=== PATIENT | male | born 1950 | race Caucasian/White ===

== ENCOUNTER 2016-07-10 12:15 | Inpatient (IN) | payer OTHER, MEDICAID, MEDICARE ==
[~2016-07-10 12:15] MED LIST: ALFU10TA2 PO; BENZ1TAB PO; BUSP15TA PO; CORE12.5 PO; COZA50TA PO; CRES20TA PO; CYMB60CA PO; DEPA500T PO; DICL50TA8 PO; DOCU50SY2 PO; FENO160T2 PO; FLON0.053; FURO1TAB93 PO; GLUCTAB PO; HYDR10SO PO; INSU100V3 SC; LATU80TA PO; LYRI150C PO; METF-324 PO; NITR0.4S SL; NOVORP2 SQ; NRSS SQ; POTA20PA PO; RISP2TAB2 PO
[2016-07-10 12:36] VITALS: BP 148/69; PULSE 81; RESP 20; TEMP 100.1; O2SAT 97
[2016-07-10 14:01] LABS: AUTOMATED NEUTROPHIL # 3.2 TH/MM3 (1.8-7.7); BASOPHIL % 0.3 % (0.0-2.0); EOSINOPHIL # 0.1 TH/MM3 (0-0.4); EOSINOPHIL % 1.4 % (0.0-4.0); HEMATOCRIT 36.7 % (39.0-51.0); HEMO FLAGS DIFF FINAL; LYMPH % 33.4 % (9.0-44.0); LYMPHOCYTE # 1.9 TH/MM3 (1.0-4.8); MEAN CELL VOLUME 80.9 FL (80.0-100.0); MEAN CORPUSCULAR HEMOGLOBIN 27.7 PG (27.0-34.0); MEAN CORPUSCULAR HGB CONC 34.3 % (32.0-36.0); MONO % 10.2 % (0.0-8.0); NEUT % 54.7 % (16.0-70.0); PLATELET COUNT 163 TH/MM3 (150-450); RED BLOOD COUNT 4.54 MIL/MM3 (4.50-5.90); RED CELL DISTRIBUTION WIDTH 14.3 % (11.6-17.2); WHITE BLOOD COUNT 5.8 TH/MM3 (4.0-11.0)
[2016-07-10 14:15] LABS: BLOOD, URINE NEG (NEG); GLUCOSE,URINE 1000 mg/dL (NEG); KETONE, URINE 10 mg/dL (NEG); NITRITE,URINE NEG (NEG); PH, URINE 5.5 (5.0-8.5); URINE COLOR LIGHT-YELLOW (YELLW/STRAW)
[2016-07-10 14:16] LABS: ANION GAP 11 MEQ/L (5-15); BICARBONATE 27.3 MEQ/L (21.0-32.0); BLOOD UREA NITROGEN 16 MG/DL (7-18); CHLORIDE 96 MEQ/L (98-107); GLOMERULAR FILTRATION RATE 66 ML/MIN (>89); POTASSIUM 4.2 MEQ/L (3.5-5.1); SODIUM (NA) 134 MEQ/L (136-145)
[2016-07-10 14:16] LABS: COMMENT (UR) CULT NOT INDICATED; CULTURE IF INDICATED CULT NOT INDICATED
[2016-07-10 14:20] LABS: ALKALINE PHOSPHATASE 65 U/L (45-117); ALT (GPT) 27 U/L (12-78); AST (GOT) 15 U/L (15-37); TOTAL BILIRUBIN ADULT 0.3 MG/DL (0.2-1.0)
[2016-07-10] MEDS ORDERED: IBUPROFEN 800 MG TAB PO ONE (14:45)
--- NOTE | 2016-07-10 15:12 | RADRPT ---
EXAM DATE/TIME: 07/10/2016 15:04 [place] COMPARISON: No previous studies available for comparison. INDICATIONS : Fever. No chest complaints. MEDICAL HISTORY : None. SURGICAL HISTORY : Gallbladder removed 2 years ago. ENCOUNTER: Initial ACUITY: 1 day PAIN SCORE: 0/10 LOCATION: Bilateral chest FINDINGS: PA and lateral views of the chest demonstrate the lungs to be symmetrically aerated without evidence of mass, infiltrate or effusion. The cardiomediastinal contours are unremarkable. Osseous structure s are intact.CONCLUSION: Normal examination for a patient of this age. Ochoa Mehta MD on July 10, 2016 at 15:10 Board Certified Radiologist. This report was verified electronically.
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
[2016-07-10] MEDS ORDERED: INSULIN HUMAN REGULAR 1,000 UNITS/10 ML VIAL SQ ONE (15:45)
[2016-07-10 17:00] VITALS: BP 134/72; PULSE 78; RESP 18; TEMP 98.6; O2SAT 96
[2016-07-10 18:52] VITALS: BP 135/77; PULSE 78; RESP 18; TEMP 97.6; O2SAT 95
[2016-07-10 22:00] VITALS: BP 135/72; PULSE 75; RESP 18; O2SAT 98
[2016-07-10] MEDS ORDERED: ALUMINUM/MAGNESIUM/SIMETH 30 ML CUP PO PRN (22:00)
[2016-07-10] MEDS ORDERED: BENZTROPINE MESYLATE 2 MG/2 ML VIAL IM PRN (22:00)
[2016-07-10] MEDS ORDERED: MAGNESIUM HYDROXIDE SUSP 30 ML CUP PO PRN (22:00)
[2016-07-10] MEDS ORDERED: DEXTROSE 50% IN WATER 50 ML VIAL(D50) IV PUSH PRN (22:00)
[2016-07-10] MEDS ORDERED: NITROGLYCERIN 0.4 MG SL 25 TABS/BTL SL PRN (22:00)
[2016-07-10] MEDS ORDERED: BENZTROPINE MESYLATE 1 MG TAB PO PRN (22:00)
[2016-07-10] MEDS ORDERED: GLUCAGON 1 MG/ML VIAL OTHER PRN (22:00)
[2016-07-10] MEDS ORDERED: LORazepam 2 MG/ML VIAL IM PRN (22:00)
[2016-07-10] MEDS ORDERED: LORazepam 1 MG TAB PO PRN (22:00)
[2016-07-10 23:00] LABS: AMPHETAMINE, URINE NEG (NEG); BARBITURATES, URINE NEG (NEG); COCAINE, URINE NEG (NEG)
[2016-07-10 23:30] VITALS: BP 131/63; PULSE 76; RESP 18; TEMP 98.3; O2SAT 94
[2016-07-11] MEDS: diphenhydrAMINE HCL 50 MG CAP PO PRN ×2 (01:22→20:55)
[2016-07-11] MEDS: ACETAMINOPHEN/HYDROcodone 325 MG/10 MG TAB PO PRN ×3 (03:23→20:50)
[2016-07-11 05:38] VITALS: BP 118/59; PULSE 72; RESP 19; TEMP 97.1; O2SAT 18
[2016-07-11] MEDS: INSULIN ASPART SUPPLEMENTAL SCALE SQ SCH ×4 (06:27→20:51)
[2016-07-11 08:03] VITALS: O2SAT 98
[2016-07-11 08:33] LABS: AUTOMATED NEUTROPHIL # 2.4 TH/MM3 (1.8-7.7); BASOPHIL % 0.3 % (0.0-2.0); EOSINOPHIL # 0.1 TH/MM3 (0-0.4); HEMATOCRIT 37.3 % (39.0-51.0); HEMO FLAGS DIFF FINAL; LYMPH % 48.1 % (9.0-44.0); LYMPHOCYTE # 2.9 TH/MM3 (1.0-4.8); MEAN CELL VOLUME 82.1 FL (80.0-100.0); MEAN CORPUSCULAR HEMOGLOBIN 27.6 PG (27.0-34.0); MEAN CORPUSCULAR HGB CONC 33.6 % (32.0-36.0); MONO % 10.4 % (0.0-8.0); NEUT % 39.2 % (16.0-70.0); PLATELET COUNT 156 TH/MM3 (150-450); RED BLOOD COUNT 4.55 MIL/MM3 (4.50-5.90); RED CELL DISTRIBUTION WIDTH 14.2 % (11.6-17.2)
[2016-07-11] MEDS: INSULIN HUMAN REGULAR 1,000 UNITS/10 ML VIAL SQ SCH ×3 (08:38→17:03)
[2016-07-11] MEDS: NICOTINE 21 MG/24 HR PATCH T-DERMAL SCH (09:00)
[2016-07-11] MEDS: REMOVE OLD PATCH T-DERMAL SCH (09:00)
[2016-07-11] MEDS: CARVEDILOL 12.5 MG TAB PO SCH ×2 (09:00→20:50)
[2016-07-11] MEDS ORDERED: METFORMIN 500 MG PO SCH (09:00)
[2016-07-11] MEDS: POTASSIUM CHLORIDE 20 MEQ PWD PACKET PO SCH (09:00)
[2016-07-11 09:22] LABS: ALKALINE PHOSPHATASE 52 U/L (45-117); ALT (GPT) 26 U/L (12-78); ANION GAP 6 MEQ/L (5-15); AST (GOT) 12 U/L (15-37); BICARBONATE 33.5 MEQ/L (21.0-32.0); BLOOD UREA NITROGEN 14 MG/DL (7-18); CHLORIDE 103 MEQ/L (98-107); GLOMERULAR FILTRATION RATE 95 ML/MIN (>89); HDL CHOLESTEROL 35.3 MG/DL (40.0-60.0); LDL CHOLESTEROL 31 MG/DL (0-99); POTASSIUM 3.9 MEQ/L (3.5-5.1); SODIUM (NA) 142 MEQ/L (136-145); TOTAL BILIRUBIN ADULT 0.2 MG/DL (0.2-1.0)
[2016-07-11] MEDS: FLUTICASONE PROPIONATE 50 MCG/ACT 16 GM NASAL SPRAY SCH (09:53)
[2016-07-11] MEDS: FUROSEMIDE 40 MG TAB PO SCH ×2 (09:54→20:49)
[2016-07-11] MEDS: DOCUSATE SODIUM 100 MG CAP PO SCH (09:54)
[2016-07-11] MEDS: busPIRone HCL 5 MG TAB PO SCH (09:54)
[2016-07-11] MEDS: DIVALPROEX DR 500 MG TABEC PO SCH ×2 (09:54→20:49)
[2016-07-11] MEDS: DICLOFENAC SODIUM 75 MG DELAYED RELEASE TAB PO SCH ×2 (09:54→20:49)
[2016-07-11] MEDS: ATORVASTATIN 40 MG TAB PO SCH (09:54)
[2016-07-11] MEDS: BENZTROPINE MESYLATE 1 MG TAB PO SCH ×3 (09:54→18:00)
[2016-07-11] MEDS: DULoxetine HCl DR 60 MG CAP PO SCH ×2 (09:54→20:49)
[2016-07-11] MEDS: TAMSULOSIN HCL 0.4 MG CAP PO SCH (09:54)
[2016-07-11] MEDS: risperiDONE 1 MG TAB PO SCH (09:54)
[2016-07-11] MEDS: FENOFIBRATE 145 MG TAB PO SCH (09:54)
[2016-07-11] MEDS: PREGABALIN 75 MG CAP PO SCH ×3 (10:55→18:26)
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
--- NOTE | 2016-07-11 12:05 | PD.CONS ---
[facility] Request[facility] By Psychiatry team Reason for Consult Medical management Primary Care Physician No Primary Care Physician Diagnoses: History of Present Illness Patient is a 65-year-old male with primary medical history of diabetes, high cholesterol, hypertension, neuropathy, sleep apnea who came into the hospital under [place] act. Patient allegedly aggressive towards family members. Also reports visual auditory hallucinations. He is now admitted to inpatient medical psych unit for further evaluation. Consulted for medical management. Patient seen today. States he is doing well. 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 States they already did the x-ray of the left second toe and found without any fractures but unable to describe any treatment plan. States he is scheduled follow-up with a doctor. Otherwise, denies pain and discomfort. Denies SOB/ dyspnea. Denies chest pain, palpitations, headaches, dizziness. Denies fevers, chills, n/v/d. Review of Systems Other Negative except for what is noted on history of present illness. Past Family Social History Allergies: Coded Allergies: No Known Allergies (Unverified , 07/10/16) Past Medical History Diabetes Chronic back pain Hypertension Uropathy High cholesterol Sleep apnea on CPAP machine at home Past Surgical History Abdominal surgery Tonsillectomy Reported Medications Docusate Sodium 50 Mg/5 Ml Liq 100 Mg PO DAILY Humulin N (Insulin Human NPH) Inj 60 Unit SC BID@0700,1700 Novolin Regular Insulin Supplemental Scale (Insulin Human Regular) U 100 Inj 1 Unit SQ DIRECTED Hydrocodone/Acetaminophen 10 mg/325 mg 1 Tab 1 Tab PO Q6H PRN Coreg (Carvedilol) 12.5 Mg Tab 25 Mg PO BID Klor-Con (Potassium Chloride) 20 Meq Pow 20 Meq PO DAILY *DISSOLVE POWDER IN 4 OUNCES OF WATER* Novolin R (Insulin Human Regular) 100 Units/Ml Inj 22 Units SQ TIDAC Flonase (Fluticasone Propionate) 0.05 % Naspr 2 Spr NA DAILY 2 SPRAYS EACH NOSTRIL Cozaar (Losartan Potassium) 50 Mg Tab 50 Mg PO DAILY@1900 Crestor (Rosuvastatin Calcium) 20 Mg Tab 1 Tab PO DAILY Fenofibrate 160 Mg Tab 160 Mg PO DAILY Metformin HCl ER (Metformin HCl) 500 Mg Tab 500 Mg PO DAILY Metformin HCl ER (Metformin HCl) 1,000 Mg Tab 1,500 Mg PO HS Lasix (Furosemide) 40 Mg Tab 40 Mg PO BID Cymbalta (Duloxetine Hcl) 60 Mg Cap 60 Mg PO BID Alfuzosin Hcl Er (Alfuzosin HCl) 10 Mg Tab 10 Mg PO DAILYWMEAL Diclofenac Sodium Dr (Diclofenac Sodium) 50 Mg Tab 75 Mg PO BID Risperdal (Risperidone) 2 Mg Tab 2 Mg PO DAILY Buspirone Hcl (Buspirone HCl) 15 Mg Tab 15 Mg PO DAILY Nitrostat (Nitroglycerin) 0.4 Mg Sub 0.4 Mg SL DIRECTED Cogentin (Benztropine Mesylate) 2 Mg Tab 2 Mg PO TID Depakote Delayed-Release (Divalproex Sodium) 500 Mg Tabec 1,000 Mg PO BID Lyrica (Pregabalin) 150 Mg Cap 150 Mg PO TID Latuda (Lurasidone HCl) 80 Mg Tab 80 Mg PO HS Active Ordered Medications Current Medications Medications (Trade) Dose Ordered Sig/Ildefonso Route Start Time Stop Time Status Last Admin (Ativan) 1 mg Q6H PRN PO 07/10/16 22:00 (Ativan Inj) 1 mg Q6H PRN IM 07/10/16 22:00 (Benadryl) 50 mg HS PRN PO 07/10/16 22:00 07/11/16 01:22 (Tylenol) 650 mg Q4H PRN PO 07/10/16 22:00 (Milk Of Magnesia Liq) 30 ml DAILY PRN PO 07/10/16 22:00 (Mag-Al Plus Susp Liq) 30 ml Q6H PRN PO 07/10/16 22:00 (Habitrol 21 Mg Patch.24 Hr) 1 patch DAILY T-DERMAL 07/11/16 09:00 (Cogentin) 1 mg Q12H PRN PO 07/10/16 22:00 (Cogentin Inj) 1 mg Q12H PRN IM 07/10/16 22:00 Miscellaneous Information 1 DAILY T-DERMAL 07/11/16 09:00 (Cogentin) 2 mg TID PO 07/11/16 09:00 07/11/16 09:54 (Coreg) 25 mg BID PO 07/11/16 09:00 (Depakote Dr) 1,000 mg BID PO 07/11/16 09:00 07/11/16 09:54 (Flonase [place] Spr) 2 spray DAILY NA 07/11/16 09:00 07/11/16 09:53 (Lasix) 40 mg BID PO 07/11/16 09:00 07/11/16 09:54 (Cozaar) 50 mg DAILY@1900 PO 07/11/16 19:00 (Nitrostat Sl) 0.4 mg DAILY PRN SL 07/10/16 22:00 (KCl Powder) 20 meq DAILY PO 07/11/16 09:00 07/11/16 09:00 (risperDAL) 2 mg DAILY PO 07/11/16 09:00 07/11/16 09:54 (Flomax) 0.4 mg DAILY PO 07/11/16 09:00 07/11/16 09:54 (Buspar) 15 mg DAILY PO 07/11/16 09:00 07/11/16 09:54 (Lipitor) 40 mg DAILY PO 07/11/16 09:00 07/11/16 09:54 (Cymbalta Dr) 60 mg BID PO 07/11/16 09:00 07/11/16 09:54 (Voltaren Dr) 75 mg BID PO 07/11/16 09:00 07/11/16 09:54 (Colace) 100 mg DAILY PO 07/11/16 09:00 07/11/16 09:54 (Tricor) 145 mg DAILY PO 07/11/16 09:00 07/11/16 09:54 (Latuda) 80 mg HS PO 07/11/16 21:00 (Glucophage) 1,000 mg BID PO 07/11/16 21:00 ([place] 10-325 Mg) 1 tab Q6H PRN PO 07/10/16 22:00 07/11/16 03:23 (Lyrica) 150 mg TID PO 07/11/16 09:00 07/11/16 10:55 (NovoLIN R INJ) 22 units TIDAC SQ 07/11/16 08:00 07/11/16 12:02 (D50w (Vial) Inj) 25 ml UNSCH PRN IV PUSH 07/10/16 22:00 (Glucagon Inj) 1 mg UNSCH PRN OTHER 07/10/16 22:00 Family History Mother with diabetes hypertension Father with hypertension Social History Denies alcohol use, quit 6 years ago Denies tobacco use Denies illicit drug use Physical Exam Vital Signs Vital Signs Date Time Temp Pulse Resp B/P Pulse Ox O2 Delivery O2 Flow Rate FiO2 07/11/16 08:03 98 07/11/16 05:38 97.1 72 19 118/59 18 07/10/16 23:30 98.3 76 18 131/63 94 07/10/16 22:00 75 18 135/72 98 07/10/16 18:52 97.6 78 18 135/77 95 Room Air 07/10/16 17:00 18 20 07/10/16 17:00 98.6 78 18 134/72 96 Room Air 07/10/16 12:36 100.1 81 20 148/69 97 Physical Exam GENERAL: This is a morbidly obese patient, in no apparent distress. SKIN: No rashes, ecchymoses or lesions. Cool and dry. HEAD: Atraumatic. Normocephalic. No temporal or scalp tenderness. EYES: Pupils equal round and reactive. Extraocular motions intact. No scleral icterus. No injection or drainage. ENT: Nose without bleeding. Throat without erythema. Uvula midline. Airway patent. NECK: Trachea midline. No JVD or lymphadenopathy. Supple, nontender, no meningeal signs. CARDIOVASCULAR: Regular rate and rhythm without murmurs, gallops, or rubs. RESPIRATORY: Clear to auscultation. Breath sounds equal bilaterally. No wheezes , rales, or rhonchi. GASTROINTESTINAL: Abdomen soft, non-tender, nondistended. Bowel sounds active 4 MUSCULOSKELETAL: Extremities without clubbing, cyanosis, or edema. No joint tenderness, effusion, or edema noted. No calf tenderness. Negative Homans sign bilaterally. Left second toe edema, no erythema noted, mild tenderness, able to move without difficulty NEUROLOGICAL: Awake and alert. Oriented 3. Motor and sensory grossly within normal limits. No focal neuro deficit.. Normal speech. Laboratory Laboratory Tests Test 07/10/16 07/10/16 07/11/16 13:35 13:40 08:14 Urine Color LIGHT-YELLOW Urine Turbidity CLEAR Urine pH 5.5 Urine Specific [place] 1.024 Urine Protein NEG Urine Glucose (UA) 1000 Urine Ketones 10 Urine Occult Blood NEG Urine Nitrite NEG Urine Bilirubin NEG Urine Urobilinogen LESS THAN 2.0 Urine Leukocyte Esterase NEG Microscopic Urinalysis Comment CULT NOT INDICATED Urine Opiates Screen NEG Urine Barbiturates Screen NEG Urine Amphetamines Screen NEG Urine Benzodiazepines Screen NEG Urine Cocaine Screen NEG Urine Cannabinoids Screen NEG White Blood Count 5.8 6.0 Red Blood Count 4.54 4.55 Hemoglobin 12.6 12.6 Hematocrit 36.7 37.3 Mean Corpuscular Volume 80.9 82.1 Mean Corpuscular Hemoglobin 27.7 27.6 Mean Corpuscular Hemoglobin 34.3 33.6 Concent Red Cell Distribution Width 14.3 14.2 Platelet Count 163 156 Mean Platelet Volume 8.7 8.1 Neutrophils (%) (Auto) 54.7 39.2 Lymphocytes (%) (Auto) 33.4 48.1 Monocytes (%) (Auto) 10.2 10.4 Eosinophils (%) (Auto) 1.4 2.0 Basophils (%) (Auto) 0.3 0.3 Neutrophils # (Auto) 3.2 2.4 Lymphocytes # (Auto) 1.9 2.9 Monocytes # (Auto) 0.6 0.6 Eosinophils # (Auto) 0.1 0.1 Basophils # (Auto) 0.0 0.0 CBC Comment DIFF FINAL DIFF FINAL Differential Comment Sodium Level 134 142 Potassium Level 4.2 3.9 Chloride Level 96 103 Carbon Dioxide Level 27.3 33.5 Anion Gap 11 6 Blood Urea Nitrogen 16 14 Creatinine 1.12 0.82 Estimat Glomerular Filtration 66 95 Rate Random Glucose 356 206 Calcium Level 9.3 8.8 Total Bilirubin 0.3 0.2 Aspartate Amino Transf 15 12 (AST/SGOT) Alanine Aminotransferase 27 26 (ALT/SGPT) Alkaline Phosphatase 65 52 Total Protein 7.1 6.6 Albumin 3.4 3.2 Ethyl Alcohol Level LESS THAN 3 Ammonia 20 Triglycerides Level 308 Cholesterol Level 128 LDL Cholesterol 31 HDL Cholesterol 35.3 Cholesterol/HDL Ratio 3.62 Valproic Acid (Depakene) Level 52 Result Diagram: 07/11/1681307/11/16813 Assessment and Plan Problem List: (1) Bipolar disorder ICD Code: F31.9 Status: Acute (2) Sleep apnea ICD Code: G47.30 Status: Chronic (3) HTN (hypertension) ICD Code: I10 Status: Chronic (4) Hyperlipidemia ICD Code: E78.5 Status: Chronic (5) DM type 2 (diabetes mellitus, type 2) ICD Code: E11.9 Status: Acute Assessment and Plan Patient is a 65-year-old male with primary medical history of diabetes, high cholesterol, hypertension, neuropathy, sleep apnea who came into the hospital under [place] act. Patient allegedly aggressive towards family members. Also reports visual auditory hallucinations. He is now admitted to inpatient medical psych unit for further evaluation. Consulted for medical management. Auditory or visual hallucination - management by psychiatry HTN - continue with home medications - carvedilol, losartan, Lasix/ KCL - Monitor BP trend DM 2 - continue with home meds - metformin, prandial insulin - Monitor Accu-Cheks, insulin sliding scale, Sleep apnea - continue with CPAP use. Please arrangement respiratory therapist Neuropathy - continue Lyrica Left Second toe swelling - check x-ray. Follow-up results DVT prop early ambulation Written by Chavo White, acting as scribe for Dr. Lemus on 07/11/16 at 12: 45. The documentation accurately reflects the work performed [id number] by me on on 07/11/16 at 12:45. Code Status Full code Discussed Condition With Patient, nursing Problem Qualifiers (1) Bipolar disorder: Chavo Reed Jul 11, 2016 12:05 Lisset Lemus MD Jul 13, 2016 11:02
[2016-07-11 15:59] LABS: HEMOGLOBIN A1a 1.3 %; HEMOGLOBIN A1b 1.6 %; HEMOGLOBIN Ao 78.8 %; HEMOGLOBIN F 1.4 %; HEMOGLOBIN LA1C 2.6 %
[2016-07-11] MEDS: LOSARTAN 50 MG TAB PO SCH ×2 (18:26→20:50)
[2016-07-11 19:30] VITALS: BP 133/73; PULSE 82; RESP 16; TEMP 98.8; O2SAT 96
--- NOTE | 2016-07-11 20:43 | RADRPT ---
EXAM DATE/TIME: 07/11/2016 19:33 [facility] COMPARISON: No previous studies available for comparison. INDICATIONS : Left foot, second digit pain. MEDICAL HISTORY : None. SURGICAL HISTORY : None. ENCOUNTER: Initial ACUITY: 1 week PAIN SCORE: 10 LOCATION: distal second digit pain. FINDINGS: There is an extremely comminuted intra-articular fracture that involves the base of the second toe mi ddle phalanx. Numerous small fracture fragments are seen displaced along the medial, lateral and plan tar margins of the proximal interphalangeal joint. CONCLUSION: Severely comminuted PIP fracture of the second toe as above. Bill Morelos MD on July 11, 2016 at 20:41 Board Certified Radiologist. This report was verified electronically.
[2016-07-11] MEDS: LURASIDONE 80 MG TAB PO SCH (20:49)
[2016-07-11] MEDS: metFORMIN HCL 500 MG TAB PO SCH (20:50)
[2016-07-12 05:58] VITALS: BP 138/69; PULSE 74; RESP 16; TEMP 97.1; O2SAT 96
[2016-07-12] MEDS: INSULIN ASPART SUPPLEMENTAL SCALE SQ SCH ×4 (06:34→20:39)
[2016-07-12] MEDS: PREGABALIN 75 MG CAP PO SCH ×3 (07:49→17:37)
[2016-07-12] MEDS: FENOFIBRATE 145 MG TAB PO SCH (07:50)
[2016-07-12] MEDS: CARVEDILOL 12.5 MG TAB PO SCH ×2 (07:50→20:29)
[2016-07-12] MEDS: metFORMIN HCL 500 MG TAB PO SCH ×2 (07:50→20:30)
[2016-07-12] MEDS: risperiDONE 1 MG TAB PO SCH (07:50)
[2016-07-12] MEDS: busPIRone HCL 5 MG TAB PO SCH (07:50)
[2016-07-12] MEDS: FUROSEMIDE 40 MG TAB PO SCH ×2 (07:51→20:30)
[2016-07-12] MEDS: BENZTROPINE MESYLATE 1 MG TAB PO SCH ×3 (07:51→17:37)
[2016-07-12] MEDS: DIVALPROEX DR 500 MG TABEC PO SCH ×2 (07:51→20:30)
[2016-07-12] MEDS: DULoxetine HCl DR 60 MG CAP PO SCH ×2 (07:52→20:29)
[2016-07-12] MEDS: TAMSULOSIN HCL 0.4 MG CAP PO SCH (07:52)
[2016-07-12] MEDS: ATORVASTATIN 40 MG TAB PO SCH (07:52)
[2016-07-12] MEDS: POTASSIUM CHLORIDE 20 MEQ PWD PACKET PO SCH (07:52)
[2016-07-12] MEDS: DOCUSATE SODIUM 100 MG CAP PO SCH (07:52)
[2016-07-12] MEDS: FLUTICASONE PROPIONATE 50 MCG/ACT 16 GM NASAL SPRAY SCH (07:53)
[2016-07-12] MEDS: INSULIN HUMAN REGULAR 1,000 UNITS/10 ML VIAL SQ SCH ×3 (07:53→17:00)
[2016-07-12] MEDS: NICOTINE 21 MG/24 HR PATCH T-DERMAL SCH (08:54)
[2016-07-12] MEDS: REMOVE OLD PATCH T-DERMAL SCH (08:54)
[2016-07-12] MEDS: DICLOFENAC SODIUM 75 MG DELAYED RELEASE TAB PO SCH ×2 (08:54→20:29)
[2016-07-12] MEDS ORDERED: INSU100V3 SQ ×2 (10:59)
[2016-07-12] MEDS ORDERED: FURO1TAB60 PO (10:59)
[2016-07-12] MEDS ORDERED: HYDR-3516 PO (10:59)
--- NOTE | 2016-07-12 11:05 | HHI.PR ---
Subjective Remarks Follow-up visit left second toe swelling, DM 2, HTN. Patient seen today. States his doing well. Discussed results of left second toe x-ray. Otherwise, patient denies pain and discomfort. Denies SOB/ dyspnea. Denies chestpain, palpitations, headaches, dizziness. Denies fevers, chills, n/v/d. Objective Vitals Vital Signs Date Time Temp Pulse Resp B/P Pulse Ox O2 Delivery O2 Flow Rate FiO2 07/12/16 05:58 97.1 74 16 138/69 96 07/11/16 19:30 98.8 82 16 133/73 96 I/O 07/11/16 07/11/16 07/11/16 07/12/16 07/12/16 07/12/16 07:00 15:00 23:00 07:00 15:00 23:00 Intake Total 360 ml 960 ml 480 ml Output Total 0 ml Balance 360 ml 960 ml 0 ml 480 ml Intake Oral 360 ml 960 ml 480 ml Output Stool Total 0 ml Emesis 0 ml # Voids 2 3 2 # Bowel Movements 0 Result Diagram: 07/11/16 0814 07/11/16 0814 Imaging Last Impressions Toe X-Ray 07/11/16 0000 Signed Impressions: Service Date/Time: June 19:33 - CONCLUSION: Severely comminuted PIP fracture of the second toe as above. Bill Morelos MD Chest X-Ray 07/10/16 0000 Signed Impressions: Service Date/Time: Sunday, July 10, 2016 15:04 - CONCLUSION: Normal examination for a patient of this age. Ochoa Mehta MD Objective Remarks GENERAL: This is a morbidly obese patient, in no apparent distress. SKIN: No rashes, ecchymoses or lesions. Cool and dry. HEAD: Atraumatic. Normocephalic. No temporal or scalp tenderness. EYES: Pupils equal round and reactive. Extraocular motions intact. No scleral icterus. No injection or drainage. ENT: Nose without bleeding. Throat without erythema. Uvula midline. Airway patent. NECK: Trachea midline. No JVD or lymphadenopathy. Supple, nontender, no meningeal signs. CARDIOVASCULAR: Regular rate and rhythm without murmurs, gallops, or rubs. RESPIRATORY: Clear to auscultation. Breath sounds equal bilaterally. No wheezes , rales, or rhonchi. GASTROINTESTINAL: Abdomen soft, non-tender, nondistended. Bowel sounds active 4 MUSCULOSKELETAL: Extremities without clubbing, cyanosis, or edema. No joint tenderness, effusion, or edema noted. No calf tenderness. Negative Homans sign bilaterally. Left second toe edema, no erythema noted, mild tenderness, able to move without difficulty NEUROLOGICAL: Awake and alert. Oriented 3. Motor and sensory grossly within normal limits. No focal neuro deficit.. Normal speech. A/P Problem List: (1) Bipolar disorder ICD Code: F31.9 Status: Acute (2) Sleep apnea ICD Code: G47.30 Status: Chronic (3) HTN (hypertension) ICD Code: I10 Status: Chronic (4) Hyperlipidemia ICD Code: E78.5 Status: Chronic (5) DM type 2 (diabetes mellitus, type 2) ICD Code: E11.9 Status: Acute Assessment and Plan Patient is a 65-year-old male with primary medical history of diabetes, high cholesterol, hypertension, neuropathy, sleep apnea who came into the hospital under [place] act. Patient allegedly aggressive towards family members. Also reports visual auditory hallucinations. He is now admitted to inpatient medical psych unit for further evaluation. Consulted for medical management. Auditory or visual hallucination - management by psychiatry HTN - continue with home medications - carvedilol, losartan, Lasix/ KCL - Monitor BP trend DM 2 - continue with home meds - metformin, prandial insulin - Monitor Accu-Cheks, insulin sliding scale, Sleep apnea - continue with CPAP use. Please arrangement respiratory therapist Neuropathy - continue Lyrica Left Second toe swelling - check x-ray - showed severely comminuted PIP fracture of the second toe. - Orthopedic consulted. DVT prop early ambulation Discuss with patient, RN Written by Chavo White, acting as scribe for Dr. Lemus on 07/12/16 at 10: 14. The documentation accurately reflects the work performed [id number] by me on 07/12/16 at 10:14. Problem Qualifiers (1) Bipolar disorder: Chavo Reed Jul 12, 2016 11:05 Lisset Lemus MD Jul 12, 2016 17:04
[2016-07-12] MEDS ORDERED: ALFU10TA2 PO (11:13)
[2016-07-12] MEDS ORDERED: CARV25TA PO (11:14)
[2016-07-12] MEDS ORDERED: METF-382 PO (11:14)
[2016-07-12] MEDS ORDERED: NITR0.4S SL (11:14)
[2016-07-12] MEDS ORDERED: LURA80 PO (11:14)
[2016-07-12] MEDS ORDERED: COZA50TA PO (11:14)
[2016-07-12] MEDS ORDERED: ROSU20 PO (11:14)
[2016-07-12] MEDS ORDERED: DEPA500T3 PO (11:14)
[2016-07-12] MEDS ORDERED: DOCU100C PO (11:14)
[2016-07-12] MEDS ORDERED: FLUT50SP EACH NARE (11:14)
[2016-07-12] MEDS ORDERED: NOVORP2 SQ (11:14)
[2016-07-12] MEDS ORDERED: POTA10PO PO (11:14)
[2016-07-12] MEDS ORDERED: BENZ2TAB PO (11:14)
[2016-07-12] MEDS ORDERED: CYMB60CA PO (11:14)
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
[2016-07-12] MEDS: LOSARTAN 50 MG TAB PO SCH (17:38)
[2016-07-12 19:07] VITALS: BP 124/58; PULSE 79; RESP 20; TEMP 98; O2SAT 94
[2016-07-12] MEDS: diphenhydrAMINE HCL 50 MG CAP PO PRN (20:29)
[2016-07-12] MEDS: LURASIDONE 80 MG TAB PO SCH (20:29)
[2016-07-13 00:58] VITALS: BP 115/70; PULSE 68; RESP 15; TEMP 98.8; O2SAT 92
[2016-07-13 05:45] VITALS: BP 112/68; PULSE 69; RESP 16; TEMP 98.8; O2SAT 96
[2016-07-13] MEDS: INSULIN ASPART SUPPLEMENTAL SCALE SQ SCH ×4 (06:08→21:02)
[2016-07-13 08:00] VITALS: BP 120/80; PULSE 74; RESP 18; TEMP 97.7
[2016-07-13] MEDS: FLUTICASONE PROPIONATE 50 MCG/ACT 16 GM NASAL SPRAY SCH ×2 (08:32→08:45)
[2016-07-13] MEDS: busPIRone HCL 5 MG TAB PO SCH ×2 (08:32→08:45)
[2016-07-13] MEDS: FENOFIBRATE 145 MG TAB PO SCH ×2 (08:33→08:45)
[2016-07-13] MEDS: DULoxetine HCl DR 60 MG CAP PO SCH ×2 (08:33→08:45)
[2016-07-13] MEDS: DIVALPROEX DR 500 MG TABEC PO SCH ×2 (08:33→08:45)
[2016-07-13] MEDS: DICLOFENAC SODIUM 75 MG DELAYED RELEASE TAB PO SCH ×2 (08:33→08:45)
[2016-07-13] MEDS: FUROSEMIDE 40 MG TAB PO SCH ×2 (08:33→08:45)
[2016-07-13] MEDS: BENZTROPINE MESYLATE 1 MG TAB PO SCH ×3 (08:34→17:09)
[2016-07-13] MEDS: TAMSULOSIN HCL 0.4 MG CAP PO SCH ×2 (08:34→08:45)
[2016-07-13] MEDS: CARVEDILOL 12.5 MG TAB PO SCH ×2 (08:34→08:45)
[2016-07-13] MEDS: DOCUSATE SODIUM 100 MG CAP PO SCH ×2 (08:35→08:45)
[2016-07-13] MEDS: ATORVASTATIN 40 MG TAB PO SCH ×2 (08:35→08:45)
[2016-07-13] MEDS: metFORMIN HCL 500 MG TAB PO SCH ×2 (08:35→08:45)
[2016-07-13] MEDS: LOSARTAN 50 MG TAB PO SCH (08:45)
[2016-07-13] MEDS: LURASIDONE 80 MG TAB PO SCH (08:45)
[2016-07-13] MEDS: POTASSIUM CHLORIDE 20 MEQ PWD PACKET PO SCH (08:45)
[2016-07-13] MEDS: INSULIN HUMAN REGULAR 1,000 UNITS/10 ML VIAL SQ SCH ×3 (08:45→17:09)
[2016-07-13] MEDS: PREGABALIN 75 MG CAP PO SCH ×3 (08:45→17:09)
[2016-07-13] MEDS: NICOTINE 21 MG/24 HR PATCH T-DERMAL SCH (09:00)
[2016-07-13] MEDS: REMOVE OLD PATCH T-DERMAL SCH (09:00)
--- NOTE | 2016-07-13 10:31 | HHI.PR ---
Subjective Remarks Follow-up visit left second toe fracture, DM 2, HTN. Patient seen today. States his doing well. Has been seen by podiatry and was given shoe. States is not in any pain.Denies SOB/ dyspnea. Denies chest pain, palpitations, headaches, dizziness. Denies fevers, chills, n/v/d. Objective Vitals Vital Signs Date Time Temp Pulse Resp B/P Pulse Ox O2 Delivery O2 Flow Rate FiO2 07/13/16 08:00 97.7 74 18 120/80 07/13/16 05:45 98.8 69 16 112/68 96 07/13/16 00:58 98.8 68 15 115/70 92 07/12/16 19:07 98.0 79 20 124/58 94 I/O 07/12/16 07/12/16 07/12/16 07/13/16 07/13/16 07/13/16 07:00 15:00 23:00 07:00 15:00 23:00 Intake Total 720 ml 480 ml 240 ml 240 ml Output Total 0 ml Balance 0 ml 720 ml 480 ml 240 ml 240 ml Intake Oral 720 ml 480 ml 240 ml 240 ml Output Stool Total 0 ml Emesis 0 ml # Voids 2 2 1 # Bowel Movements 0 0 Result Diagram: 07/11/16 0814 07/11/16 0814 Imaging Last Impressions Toe X-Ray 07/11/16 0000 Signed Impressions: Service Date/Time: June 19:33 - CONCLUSION: Severely comminuted PIP fracture of the second toe as above. Bill Morelos MD Chest X-Ray 07/10/16 0000 Signed Impressions: Service Date/Time: Sunday, July 10, 2016 15:04 - CONCLUSION: Normal examination for a patient of this age. Ochoa Mehta MD Objective Remarks GENERAL: This is a morbidly obese patient, in no apparent distress. SKIN: No rashes, ecchymoses or lesions. Cool and dry. HEAD: Atraumatic. Normocephalic. No temporal or scalp tenderness. EYES: Pupils equal round and reactive. Extraocular motions intact. No scleral icterus. No injection or drainage. ENT: Nose without bleeding. Throat without erythema. Uvula midline. Airway patent. NECK: Trachea midline. No JVD or lymphadenopathy. Supple, nontender, no meningeal signs. CARDIOVASCULAR: Regular rate and rhythm without murmurs, gallops, or rubs. RESPIRATORY: Clear to auscultation. Breath sounds equal bilaterally. No wheezes , rales, or rhonchi. GASTROINTESTINAL: Abdomen soft, non-tender, nondistended. Bowel sounds active 4 MUSCULOSKELETAL: Extremities without clubbing, cyanosis, or edema. No joint tenderness, effusion, or edema noted. No calf tenderness. Negative Homans sign bilaterally. Left second toe edema, no erythema noted, mild tenderness, able to move without difficulty NEUROLOGICAL: Awake and alert. Oriented 3. Motor and sensory grossly within normal limits. No focal neuro deficit.. Normal speech. A/P Problem List: (1) Bipolar disorder ICD Code: F31.9 Status: Acute (2) Sleep apnea ICD Code: G47.30 Status: Chronic (3) HTN (hypertension) ICD Code: I10 Status: Chronic (4) Hyperlipidemia ICD Code: E78.5 Status: Chronic (5) DM type 2 (diabetes mellitus, type 2) ICD Code: E11.9 Status: Acute Assessment and Plan Patient is a 65-year-old male with primary medical history of diabetes, high cholesterol, hypertension, neuropathy, sleep apnea who came into the hospital under [place] act. Patient allegedly aggressive towards family members. Also reports visual auditory hallucinations. He is now admitted to inpatient medical psych unit for further evaluation. Consulted for medical management. Auditory or visual hallucination - management by psychiatry HTN - continue with home medications - carvedilol, losartan, Lasix/ KCL - Monitor BP trend - Controlled DM 2 - continue with home meds - metformin, prandial insulin 22 units TID - Monitor Accu-Cheks, insulin sliding scale, - Sleep apnea - continue with CPAP use. Please arrangement respiratory therapist Neuropathy - continue Lyrica Left Second toe swelling - check x-ray - showed severely comminuted PIP fracture of the second toe. - Orthopedic consulted. Referred to podiatry. Given new orthotic shoe. DVT prop early ambulation Discuss with patient, RN Stable from Hospitalist standpoint. We will sign off. Reconsult as needed. Written by Chavo White, acting as scribe for Dr. Lemus on 07/13/16 at 12: 12. The documentation accurately reflects the work performed [id number] by me on at 12:12. Problem Qualifiers (1) Bipolar disorder: Chavo Reed Jul 13, 2016 10:31 Lisset Lemus MD Jul 14, 2016 10:33
--- NOTE | 2016-07-13 11:43 | HHI.PYPN ---
Subjective Remarks Patient was seen and discussed with the set staff fitter. Patient reported that he has been doing fine his happy with the staff here. But he does admit to hearing voices of his father and grandmother. They're trying to call keep in touch with him otherwise he feels okay he sleeps okay no behavior or management problem reported his med compliant no side effects were complained advised to continue with the same treatment Review of Systems Except as stated in HPI: all other systems reviewed are Neg Psychiatric: COMPLAINS OF: Mood changes, Hallucinations Objective Alert: Yes [place]: Person, Place, Date, Situation Mood: Calm Affect: Euthymic Memory Intact: Immediate, Recent, Remote Hallucinations: Auditory ( does admit to hearing voices of his father and grandmother) Delusions: No Delusion Type: Other (none elicited) Suicidal: Ideation (he denies) Homicidal: Ideation (he denies) Insight/Judgement Fair Vitals/IOs Vital Signs Date Time Temp Pulse Resp B/P Pulse Ox O2 Delivery O2 Flow Rate FiO2 07/13/16 08:00 97.7 74 18 120/80 07/13/16 05:45 96 07/10/16 18:52 Room Air Intake and Output 07/12/16 07/12/16 07/13/16 08:00 16:00 00:00 Intake Total 720 ml 480 ml Output Total 0 ml Balance 0 ml 720 ml 480 ml Assessment & Plan Problem List: (1) Bipolar disorder ICD Code: F31.9 Assessment & Plan Estimated LOS: days Justification for Cont. Inpt. Monitoring of the medication Request HC Surrog/Guard Advoc?: No Problem Qualifiers (1) Bipolar disorder: Dagoberto Wiseman MD Jul 13, 2016 11:43
[2016-07-13] MEDS: ACETAMINOPHEN 325 MG TAB PO PRN (18:58)
[2016-07-13 19:00] VITALS: BP 128/80; PULSE 89; RESP 18; TEMP 97.9; O2SAT 97
[2016-07-13] MEDS ORDERED: DULoxetine HCl DR 60 MG CAP PO SCH (21:30)
[2016-07-13] MEDS ORDERED: FUROSEMIDE 40 MG TAB PO SCH (21:30)
[2016-07-13] MEDS ORDERED: CARVEDILOL 12.5 MG TAB PO SCH (21:30)
[2016-07-13] MEDS ORDERED: DIVALPROEX DR 500 MG TABEC PO SCH (21:30)
[2016-07-13] MEDS ORDERED: metFORMIN HCL 500 MG TAB PO SCH (21:45)
[2016-07-14] VITALS: BP 103/71; PULSE 84; RESP 17; TEMP 98.1; O2SAT 95
[2016-07-14] MEDS: ACETAMINOPHEN/HYDROcodone 325 MG/10 MG TAB PO PRN ×2 (01:37→20:30)
[2016-07-14 05:09] VITALS: BP 114/65; PULSE 75; RESP 14; TEMP 98.2; O2SAT 94
[2016-07-14] MEDS: INSULIN ASPART SUPPLEMENTAL SCALE SQ SCH ×4 (06:15→21:00)
[2016-07-14] MEDS: INSULIN HUMAN REGULAR 1,000 UNITS/10 ML VIAL SQ SCH ×3 (08:00→17:06)
--- NOTE | 2016-07-14 08:01 | PD.ORT.PN ---
Subjective Subjective Remarks s/p left toe fracture patient unsure when he did it. thinks maybe a couple weeks ago. states no pain sees a portable machine cutter in [place], Dr Troy has post op shoe and ambulates [facility] walker Objective Vitals Vital Signs Date Time Temp Pulse Resp B/P Pulse Ox O2 Delivery O2 Flow Rate FiO2 07/14/16 05:09 98.2 75 14 114/65 94 07/14/16 02:37 20 07/14/16 00:00 98.1 84 17 103/71 95 07/13/16 20:54 20 07/13/16 19:00 97.9 89 18 128/80 97 07/13/16 08:00 97.7 74 18 120/80 I/O 07/13/16 07/13/16 07/13/16 07/14/16 07/14/16 07/14/16 07:00 15:00 23:00 07:00 15:00 23:00 Intake Total 240 ml 600 ml 2160 ml 250 ml Balance 240 ml 600 ml 2160 ml 250 ml Intake Oral 240 ml 600 ml 2160 ml 250 ml # Voids 1 2 2 # Bowel Movements 0 Result Diagram: 07/11/1614 07/11/1614 Objective Remarks LLE: 2nd toe erythematous and swollen. tender to touch. Assessment & Plan Assessment and Plan 1) Left 2nd Phalynx fx -recommend Podiatry consult for management of left toe fracture -consult was placed yesterday for podiatry -ortho signing off Otf Shaffer Jul 14, 2016 08:01
[2016-07-14] MEDS: DIVALPROEX DR 500 MG TABEC PO SCH ×2 (08:29→20:27)
[2016-07-14] MEDS: PREGABALIN 75 MG CAP PO SCH ×3 (08:29→18:10)
[2016-07-14] MEDS: DOCUSATE SODIUM 100 MG CAP PO SCH (08:31)
[2016-07-14] MEDS: DULoxetine HCl DR 60 MG CAP PO SCH ×2 (08:31→20:27)
[2016-07-14] MEDS: metFORMIN HCL 500 MG TAB PO SCH ×2 (08:32→20:26)
[2016-07-14] MEDS: BENZTROPINE MESYLATE 1 MG TAB PO SCH ×3 (08:32→18:10)
[2016-07-14] MEDS: FUROSEMIDE 40 MG TAB PO SCH ×2 (08:32→20:27)
[2016-07-14] MEDS: DICLOFENAC SODIUM 75 MG DELAYED RELEASE TAB PO SCH ×2 (08:32→20:27)
[2016-07-14] MEDS: CARVEDILOL 12.5 MG TAB PO SCH ×2 (08:33→20:27)
[2016-07-14] MEDS: FLUTICASONE PROPIONATE 50 MCG/ACT 16 GM NASAL SPRAY SCH (08:39)
[2016-07-14] MEDS: FENOFIBRATE 145 MG TAB PO SCH (08:40)
[2016-07-14] MEDS: TAMSULOSIN HCL 0.4 MG CAP PO SCH (08:40)
[2016-07-14] MEDS: ATORVASTATIN 40 MG TAB PO SCH (08:40)
[2016-07-14] MEDS: busPIRone HCL 5 MG TAB PO SCH (08:40)
[2016-07-14] MEDS: POTASSIUM CHLORIDE 20 MEQ PWD PACKET PO SCH (08:43)
[2016-07-14] MEDS: REMOVE OLD PATCH T-DERMAL SCH (09:00)
[2016-07-14] MEDS: NICOTINE 21 MG/24 HR PATCH T-DERMAL SCH (09:00)
--- NOTE | 2016-07-14 10:35 | HHI.PYPN ---
Subjective Remarks Patient was seen and discussed with the staff nurse midwife. Patient reported that he has been still having some difficulty sleeping. His mind is racing. But otherwise he is pleasant. No behavior or management problem reported. Denied any suicidal and/or homicidal ideation intentions or plan. Denied any auditory or visual hallucinations. No side effects were complained. Continue with the same treatment Review of Systems Except as stated in HPI: all other systems reviewed are Neg Psychiatric: COMPLAINS OF: Mood changes, Delusions (mind racing) Objective Alert: Yes [place]: Person, Place, Date, Situation Mood: Calm Affect: Euthymic Memory Intact: Immediate, Recent, Remote Hallucinations: Auditory ( does admit to hearing voices of his father and grandmother occasionally) Delusions: No Delusion Type: Other (patient is complaining of his mind racing will adjust the medication) Suicidal: Ideation (he denies) Homicidal: Ideation (he denies) Insight/Judgement Fair Vitals/IOs Vital Signs Date Time Temp Pulse Resp B/P Pulse Ox O2 Delivery O2 Flow Rate FiO2 07/14/16 05:09 98.2 75 14 114/65 94 07/10/16 18:52 Room Air Intake and Output 07/13/16 07/13/16 07/14/16 08:00 16:00 00:00 Intake Total 480 ml 1560 ml 960 ml Balance 480 ml 1560 ml 960 ml Assessment & Plan Problem List: (1) Bipolar disorder ICD Code: F31.9 Assessment & Plan Estimated LOS: days Justification for Cont. Inpt. Monitoring of the medication Request HC Surrog/Guard Advoc?: No Problem Qualifiers (1) Bipolar disorder: Dagoberto Wiseman MD Jul 14, 2016 10:35
[2016-07-14] MEDS: ACETAMINOPHEN 325 MG TAB PO PRN (13:26)
[2016-07-14] MEDS: LOSARTAN 50 MG TAB PO SCH (18:10)
[2016-07-14 19:57] VITALS: BP_SYST 124; BP_SYST 141; BP_DIAS 77; BP_DIAS 83; PULSE 85; PULSE 97; RESP 20; RESP 22; TEMP 98.1; O2SAT 96; O2SAT 98
[2016-07-14] MEDS: diphenhydrAMINE HCL 50 MG CAP PO PRN (20:30)
[2016-07-15 06:16] VITALS: BP 133/62; PULSE 76; RESP 16; TEMP 97.9; O2SAT 97
[2016-07-15] MEDS: INSULIN ASPART SUPPLEMENTAL SCALE SQ SCH ×4 (06:19→20:06)
[2016-07-15] MEDS: INSULIN HUMAN REGULAR 1,000 UNITS/10 ML VIAL SQ SCH ×3 (08:00→17:00)
[2016-07-15] MEDS: TAMSULOSIN HCL 0.4 MG CAP PO SCH (08:46)
[2016-07-15] MEDS: FENOFIBRATE 145 MG TAB PO SCH (08:46)
[2016-07-15] MEDS: busPIRone HCL 5 MG TAB PO SCH (08:46)
[2016-07-15] MEDS: DICLOFENAC SODIUM 75 MG DELAYED RELEASE TAB PO SCH ×2 (08:46→20:01)
[2016-07-15] MEDS: PREGABALIN 75 MG CAP PO SCH ×3 (08:46→18:00)
[2016-07-15] MEDS: metFORMIN HCL 500 MG TAB PO SCH ×2 (08:46→20:01)
[2016-07-15] MEDS: CARVEDILOL 12.5 MG TAB PO SCH ×2 (08:47→20:02)
[2016-07-15] MEDS: BENZTROPINE MESYLATE 1 MG TAB PO SCH ×3 (08:47→18:00)
[2016-07-15] MEDS: FUROSEMIDE 40 MG TAB PO SCH ×2 (08:47→20:01)
[2016-07-15] MEDS: DOCUSATE SODIUM 100 MG CAP PO SCH (08:47)
[2016-07-15] MEDS: DIVALPROEX DR 500 MG TABEC PO SCH ×2 (08:47→20:01)
[2016-07-15] MEDS: ATORVASTATIN 40 MG TAB PO SCH (08:47)
[2016-07-15] MEDS: FLUTICASONE PROPIONATE 50 MCG/ACT 16 GM NASAL SPRAY SCH (08:48)
[2016-07-15] MEDS: DULoxetine HCl DR 60 MG CAP PO SCH ×2 (08:48→20:01)
[2016-07-15] MEDS: NICOTINE 21 MG/24 HR PATCH T-DERMAL SCH (08:51)
[2016-07-15] MEDS: REMOVE OLD PATCH T-DERMAL SCH (08:52)
[2016-07-15] MEDS: POTASSIUM CHLORIDE 20 MEQ PWD PACKET PO SCH (09:00)
--- NOTE | 2016-07-15 10:56 | HHI.PYPN ---
Subjective Remarks Patient was seen today for psychiatric reevaluation alone with social group worker Purvi and nurse Rhona, he was calm, cooperative and pleasant, patient described his mood as fine, denies depressive symptoms, he denies anxiety, denies psychosis, he denies suicidal and homicidal ideation. Patient has been medication compliant, no significant side effects reported. Patient is states that he has been considering, if possible, to be discharged back to his mother' s house while the process of getting a bed in a snf is completed. Review of Systems Other No somatic complaints Objective Alert: Yes [place]: Person, Place, Date, Situation Mood: Calm Affect: Euthymic Memory Intact: Immediate, Recent, Remote Hallucinations: Auditory ( does admit to hearing voices of his father and grandmother occasionally) Delusions: No Delusion Type: Other (patient is complaining of his mind racing will adjust the medication) Suicidal: Ideation (he denies) Homicidal: Ideation (he denies) Insight/Judgement good Vitals/IOs Vital Signs Date Time Temp Pulse Resp B/P Pulse Ox O2 Delivery O2 Flow Rate FiO2 07/15/16 06:16 97.9 76 16 133/62 97 Intake and Output 07/14/16 07/14/16 07/15/16 08:00 16:00 00:00 Intake Total 250 ml 1440 ml 600 ml Output Total 3 ml Balance 250 ml 1440 ml 597 ml Assessment & Plan Problem List: (1) Bipolar disorder Assessment & Plan: Patient continued to show good adherence and respond to psychotropic, no changes in psychotropics today. ICD Code: F31.9 Assessment & Plan Estimated LOS: days Justification for Cont. Inpt. Patient has a high risk to decompensate in a less structured environment, still working in a safe discharge planning Request HC Surrog/Guard Advoc?: No Problem Qualifiers (1) Bipolar disorder: Marcus Kendrick MD Jul 15, 2016 10:56
[2016-07-15] MEDS: LOSARTAN 50 MG TAB PO SCH (20:02)
[2016-07-15] MEDS: diphenhydrAMINE HCL 50 MG CAP PO PRN (20:11)
[2016-07-15 22:02] VITALS: BP 121/91; PULSE 85; RESP 18; TEMP 98.7; O2SAT 94
[2016-07-15 22:35] VITALS: BP 138/90; PULSE 92; RESP 16; TEMP 97.7; O2SAT 94
[2016-07-15 23:20] VITALS: BP 127/71; PULSE 70; RESP 16; TEMP 98; O2SAT 95
--- NOTE | 2016-07-16 00:37 | RADRPT ---
EXAM DATE/TIME: 07/16/2016 00:16 [facility] COMPARISON: No previous studies available for comparison. INDICATIONS : Trauma. Fall. RADIATION DOSE: 34.23 CTDIvol (mGy) MEDICAL HISTORY : Cardiovascular disease. Hypertension. Diabetes mellitus type 2. SURGICAL HISTORY : None. ENCOUNTER: Initial ACUITY: 1 day PAIN SCALE: 0/10 LOCATION: neck TECHNIQUE: Volumetric scanning of the cervical spine was performed. Multiplanar reconstructions in the sagittal, coronal and oblique axial planes were performed. Using automated exposure control and adjustment o f the mA and/or kV according to patient size, radiation dose was kept as low as reasonably achievable to obtain optimal diagnostic quality images. FINDINGS: VERTEBRAE: Normal vertebral body height. No acute bony fracture. There is primary diffuse bony degenerative parra ges as well as disc degeneration throughout the cervical spine. ALIGNMENT: No evidence of subluxation. C2-C3: The bony spinal canal is normal in size. No evidence of disc bulge or herniation. The neural forami na are bilaterally patent. C3-C4: Mild central bulging.. Mild narrowing of the left neural foramina. Right neural foramina is patent. C4-C5: Mild central bulging. The neural foramina are patent. C5-C6: Focal central bulging/protrusion with disc osteophyte complex. The neural foramina are patent bilater ally. C6-C7: Broad-based bulging with disc osteophyte complex. Mild narrowing of the right neural foramina. The le ft neuroforamina is patent. C7-T1: The bony spinal canal is normal in size. No evidence of disc bulge or herniation. The neural forami na are bilaterally patent. CONCLUSION: 1. No acute bony fracture. 2. Diffuse primary bony degenerative changes, disc degeneration are noted throughout the cervical spi ne. 3. Broad-based bulging with disc osteophyte complex at C6-7 4. Focal central bulging disc osteophyte complex at C5-6. Ochoa Mehta MD on July 16, 2016 at 0:30 Board Certified Radiologist. This report was verified electronically.
--- NOTE | 2016-07-16 00:51 | RADRPT ---
EXAM DATE/TIME: 07/16/2016 00:18 [facility] COMPARISON: No previous studies available for comparison. INDICATIONS : Trauma. Fall. RADIATION DOSE: 35.86 CTDIvol (mGy) ; Combined studies - Thoracic Spine/Lumbar Spine MEDICAL HISTORY : Cardiovascular disease. Hypertension. Diabetes mellitus type 2. SURGICAL HISTORY : None. ENCOUNTER: Initial ACUITY: 1 day PAIN SCALE: 0/10 LOCATION: thoracic spine TECHNIQUE: Volumetric scanning of the thoracic spine was performed. Multiplanar reconstructions in the sagittal , coronal and oblique axial planes were performed. Using automated exposure control and adjustment o f the mA and/or kV according to patient size, radiation dose was kept as low as reasonably achievable to obtain optimal diagnostic quality images. FINDINGS: The vertebral bodies of the thoracic spine are in normal alignment without evidence of subluxation. Vertebral body height is maintained. No fractures are seen. T1-T2: Normal. T2-T3: The thecal sac has a normal diameter. No evidence of disc bulge or protrusion. T3-T4: The thecal sac has a normal diameter. No evidence of disc bulge or protrusion. T4-T5: The thecal sac has a normal diameter. No evidence of disc bulge or protrusion. Small left paracentra l osteophyte. T5-T6: The thecal sac has a normal diameter. No evidence of disc bulge or protrusion. T6-T7: The thecal sac has a normal diameter. No evidence of disc bulge or protrusion. T7-T8: Mild broad-based bulging and degenerative changes. T8-T9: The thecal sac has a normal diameter. No evidence of disc bulge or protrusion. T9-T10: The thecal sac has a normal diameter. No evidence of disc bulge or protrusion. T10-T11: MILD BROAD-BASED BULGING. THE NEURAL FORAMINA ARE PATENT BILATERALLY. T11-T12: Mild broad-based and right lateral bulging and narrowing of the right neural foramina. The left neura l foramen is patent. T12-L1: The thecal sac has a normal diameter. No evidence of disc bulge or protrusion. CONCLUSION: 1. No acute bony fracture. 2. Primary bony degenerative changes are noted throughout the thoracic spine. 3. Broad-based bulging at T10-11 4. Broad-based and right lateral bulging T11-T12 Ochoa Mehta MD on July 16, 2016 at 0:41 Board Certified Radiologist. This report was verified electronically.
--- NOTE | 2016-07-16 00:56 | RADRPT ---
EXAM DATE/TIME: 07/16/2016 00:18 [facility] COMPARISON: No previous studies available for comparison. INDICATIONS : Trauma. Fall. RADIATION DOSE: 35.86 CTDIvol (mGy) ; Combined studies - Thoracic Spine/Lumbar Spine MEDICAL HISTORY : Cardiovascular disease. Hypertension. Diabetes mellitus type 2. SURGICAL HISTORY : None. ENCOUNTER: Initial ACUITY: 1 day PAIN SCALE: 0/10 LOCATION: lumbar spine TECHNIQUE: Volumetric scanning of the lumbar spine was performed. Multiplanar reconstructions in the sagittal, coronal and oblique axial planes were performed. Using automated exposure control and adjustment of the mA and/or kV according to patient size, radiation dose was kept as low as reasonably achievable t o obtain optimal diagnostic quality images. FINDINGS: VERTEBRAE: Normal vertebral body height. No acute bony fractures are seen. There is some chronic loss of height of L1 compared to the rest of the lumbar vertebral bodies. This suggests an old mild compression. The re is disc degeneration disc space narrowing at L3-4, L4-5 and L5-S1. ALIGNMENT: No evidence of subluxation. T12-L1: The thecal sac has a normal diameter. No evidence of disc bulge or protrusion. The neural foramina are patent bilaterally. L1-L2: The thecal sac has a normal diameter. No evidence of disc bulge or protrusion. The neural foramina are patent bilaterally. L2-L3: The thecal sac has a normal diameter. No evidence of disc bulge or protrusion. The neural foramina are patent bilaterally. L3-L4: Moderate diffuse broad-based bulging and right lateral bulging/protrusion with narrowing of the right neural foramina. The left neuroforamina is patent. There is hypertrophy of ligamentum flavum. This a ppears to be causing moderate spinal canal stenosis. L4-L5: Broad-based and left lateral bulging with narrowing of the left neural foramina. The right neural for johan appears patent. There is bilateral facet arthritis. Mild spinal canal stenosis. L5-S1: The thecal sac has a normal diameter. No evidence of disc bulge or protrusion. The neural foramina are patent bilaterally. Bilateral facet arthritis. CONCLUSION: 1. No acute bony fracture. 2. Diffuse primary bony degenerative changes, disc degeneration and disc space narrowing at L3-4, L4- 5 and L5-S1. 3. Moderate spinal canal stenosis at L3-4. 4. Mild spinal canal stenosis at L4-5 5. Bilateral facet arthritis at multiple levels. Ochoa Mehta MD on July 16, 2016 at 0:50 Board Certified Radiologist. This report was verified electronically.
[2016-07-16 04:00] VITALS: BP 124/73; PULSE 84; RESP 16; TEMP 97.3; O2SAT 95
[2016-07-16] MEDS: INSULIN ASPART SUPPLEMENTAL SCALE SQ SCH ×4 (06:32→20:51)
[2016-07-16] MEDS: INSULIN HUMAN REGULAR 1,000 UNITS/10 ML VIAL SQ SCH ×2 (08:00→12:00)
[2016-07-16] MEDS: FLUTICASONE PROPIONATE 50 MCG/ACT 16 GM NASAL SPRAY SCH (08:21)
[2016-07-16] MEDS: ACETAMINOPHEN/HYDROcodone 325 MG/10 MG TAB PO PRN ×2 (08:22→21:33)
[2016-07-16] MEDS: DIVALPROEX DR 500 MG TABEC PO SCH ×2 (08:22→20:06)
[2016-07-16] MEDS: BENZTROPINE MESYLATE 1 MG TAB PO SCH ×3 (08:22→18:00)
[2016-07-16] MEDS: metFORMIN HCL 500 MG TAB PO SCH ×2 (08:22→20:06)
[2016-07-16] MEDS: busPIRone HCL 5 MG TAB PO SCH (08:22)
[2016-07-16] MEDS: DOCUSATE SODIUM 100 MG CAP PO SCH (08:22)
[2016-07-16] MEDS: TAMSULOSIN HCL 0.4 MG CAP PO SCH (08:22)
[2016-07-16] MEDS: FUROSEMIDE 40 MG TAB PO SCH ×2 (08:22→20:06)
[2016-07-16] MEDS: POTASSIUM CHLORIDE 20 MEQ PWD PACKET PO SCH (08:23)
[2016-07-16] MEDS: ATORVASTATIN 40 MG TAB PO SCH (08:23)
[2016-07-16] MEDS: DICLOFENAC SODIUM 75 MG DELAYED RELEASE TAB PO SCH ×2 (08:23→20:06)
[2016-07-16] MEDS: FENOFIBRATE 145 MG TAB PO SCH (08:23)
[2016-07-16] MEDS: DULoxetine HCl DR 60 MG CAP PO SCH ×2 (08:23→20:06)
[2016-07-16] MEDS: PREGABALIN 75 MG CAP PO SCH ×3 (08:23→18:00)
[2016-07-16] MEDS: REMOVE OLD PATCH T-DERMAL SCH (09:00)
[2016-07-16] MEDS: NICOTINE 21 MG/24 HR PATCH T-DERMAL SCH (09:00)
[2016-07-16] MEDS: CARVEDILOL 12.5 MG TAB PO SCH ×2 (09:00→20:06)
--- NOTE | 2016-07-16 13:16 | HHI.PYPN ---
Subjective Remarks Patient was seen today his room with rn social work Purvi and nurse in charge Deja, patient reports improvement in mood and medical symptomatology, he reports good response to psychotropics, no significant side effects, denies depressive symptoms, denies suicidal or homicidal ideation, denies visual and auditory hallucinations, he is oriented 3, no agitation or aggressive behavior reported or observed. Review of Systems Other No significant changes since 07/11/2016 Objective Alert: Yes [place]: Person, Place, Date, Situation Mood: Calm Affect: Euthymic Memory Intact: Immediate, Recent, Remote Hallucinations: Auditory ( does admit to hearing voices of his father and grandmother occasionally) Delusions: No Delusion Type: Other (patient is complaining of his mind racing will adjust the medication) Suicidal: Ideation (he denies) Homicidal: Ideation (he denies) Insight/Judgement Improved Vitals/IOs Vital Signs Date Time Temp Pulse Resp B/P Pulse Ox O2 Delivery O2 Flow Rate FiO2 07/16/16 04:00 97.3 84 16 124/73 95 Intake and Output 07/15/16 07/15/16 07/16/16 08:00 16:00 00:00 Intake Total 240 ml 720 ml Balance 240 ml 720 ml Assessment & Plan Problem List: (1) Bipolar disorder Assessment & Plan: Patient continue to show good response to psychotropics, psychotherapy, no significant side effects, will continue present for psychiatric hospitalization for stabilization. No changes in psychotropics today, support, motivation psycho education provided. ICD Code: F31.9 Assessment & Plan Estimated LOS: days Justification for Cont. Inpt. Patient is to continue hospitalization for psychiatric stabilization, and to coordinate a safe discharge. Request HC Surrog/Guard Advoc?: No Problem Qualifiers (1) Bipolar disorder: Marcus Kendrick MD Jul 16, 2016 13:16
--- NOTE | 2016-07-16 13:30 | HHI.PYPN ---
Subjective Remarks Patient seen today for psychiatric evaluation, along with nurse in charge Deja and psychologist social Purvi, patient reports significant improvement in his mood, denies depressive symptoms, denies anxiety, denies chris, denies suicidal or homicidal ideation, denies visual and auditory hallucinations. Patient is fully oriented 3, he is medication compliant, no agitation or aggressive behavior reported in the last 24 hours. Review of Systems Other No somatic complaints Objective Alert: Yes [place]: Person, Place, Date, Situation Mood: Calm Affect: Euthymic Memory Intact: Immediate, Recent, Remote Hallucinations: Auditory ( does admit to hearing voices of his father and grandmother occasionally) Delusions: No Delusion Type: Other (patient is complaining of his mind racing will adjust the medication) Suicidal: Ideation (he denies) Homicidal: Ideation (he denies) Insight/Judgement Current Vitals/IOs Vital Signs Date Time Temp Pulse Resp B/P Pulse Ox O2 Delivery O2 Flow Rate FiO2 07/16/16 04:00 97.3 84 16 124/73 95 Intake and Output 07/15/16 07/15/16 07/16/16 08:00 16:00 00:00 Intake Total 240 ml 720 ml Balance 240 ml 720 ml Assessment & Plan Problem List: (1) Bipolar disorder ICD Code: F31.9 Assessment & Plan Estimated LOS: days Justification for Cont. Inpt. Patient is still needs psychiatric stabilization, medication adjustment and coordination of a safe discharge. Request HC Surrog/Guard Advoc?: No Problem Qualifiers (1) Bipolar disorder: Marcus Kendrick MD Jul 16, 2016 13:30
[2016-07-16] MEDS: INSULIN ASPART 1,000 UNITS/10 ML VIAL SQ SCH (17:00)
--- NOTE | 2016-07-16 17:49 | HHI.PR ---
Subjective Remarks Reconsult for fall and EPS. Follow-up visit left second toe fracture, DM 2, HTN. Patient seen today. Patient reports he fell last night walking a shower patient reports his vertigo acted up. He patient reports when he looks down while standing the room starts to spin. Patient reports he seen neurologist twice in the past and continues to have this problem. Patient complains of back pain after the fall. Per RN patient has both resting and intention tremors and has been dropping things bilateral upper extremities. Has been seen by podiatry and was given shoe. Denies SOB/ dyspnea. Denies chest pain, palpitations, headaches, dizziness. Denies fevers, chills, n/v/d. Objective Vitals Vital Signs Date Time Temp Pulse Resp B/P Pulse Ox O2 Delivery O2 Flow Rate FiO2 07/16/16 04:00 97.3 84 16 124/73 95 07/15/16 23:20 98.0 70 16 127/71 95 07/15/16 22:35 97.7 92 16 138/90 94 07/15/16 22:02 98.7 85 18 121/91 94 I/O 07/15/16 07/15/16 07/15/16 07/16/16 07/16/16 07/16/16 07:00 15:00 23:00 07:00 15:00 23:00 Intake Total 840 ml 720 ml 240 ml 240 ml Output Total 3 ml Balance 837 ml 720 ml 240 ml 240 ml Intake Oral 840 ml 720 ml 240 ml 240 ml Output Urine Total 3 ml # Voids 4 3 3 Imaging Last Impressions Thoracic Spine CT 07/15/162335 Signed Impressions: Service Date/Time: Saturday, July 16, 2016 00:18 - CONCLUSION: 1. No acute bony fracture. 2. Primary bony degenerative changes are noted throughout the thoracic spine. 3. Broad-based bulging at T10-11 4. Broad-based and right lateral bulging T11-T12 Ochoa Mehta MD Lumbar Spine CT 07/15/166 Signed Impressions: Service Date/Time: Saturday, July 16, 2016 00:18 - CONCLUSION: 1. No acute bony fracture. 2. Diffuse primary bony degenerative changes, disc degeneration and disc space narrowing at L3-4, L4-5 and L5-S1. 3. Moderate spinal canal stenosis at L3-4. 4. Mild spinal canal stenosis at L4-5 5. Bilateral facet arthritis at multiple levels. Ochoa Mehta MD Cervical Spine CT 07/15/16 2336 Signed Impressions: Service Date/Time: Saturday, July 16, 2016 00:16 - CONCLUSION: 1. No acute bony fracture. 2. Diffuse primary bony degenerative changes, disc degeneration are noted throughout the cervical spine. 3. Broad-based bulging with disc osteophyte complex at C6-7 4. Focal central bulging disc osteophyte complex at C5-6. Ochoa Mehta MD Toe X-Ray 07/11/16 0000 Signed Impressions: Service Date/Time: June 19:33 - CONCLUSION: Severely comminuted PIP fracture of the second toe as above. Bill Morelos MD Chest X-Ray 07/10/16 0000 Signed Impressions: Service Date/Time: Sunday, July 10, 2016 15:04 - CONCLUSION: Normal examination for a patient of this age. Ochoa Mehta MD Objective Remarks GENERAL: This is a morbidly obese patient, in no apparent distress. SKIN: No rashes, ecchymoses or lesions. Cool and dry. HEAD: Atraumatic. Normocephalic. No temporal or scalp tenderness. EYES: Pupils equal round and reactive. Extraocular motions intact. No scleral icterus. No injection or drainage. ENT: Nose without bleeding. Throat without erythema. Uvula midline. Airway patent. NECK: Trachea midline. No JVD or lymphadenopathy. Supple, nontender, no meningeal signs. CARDIOVASCULAR: Regular rate and rhythm without murmurs, gallops, or rubs. RESPIRATORY: Clear to auscultation. Breath sounds equal bilaterally. No wheezes , rales, or rhonchi. GASTROINTESTINAL: Abdomen soft, non-tender, nondistended. Bowel sounds active 4 MUSCULOSKELETAL: Extremities without clubbing, cyanosis, or edema. No joint tenderness, effusion, or edema noted. No calf tenderness. Negative Homans sign bilaterally. Left second toe edema, no erythema noted, mild tenderness, able to move without difficulty NEUROLOGICAL: Awake and alert. Oriented 3. Motor and sensory grossly within normal limits. No focal neuro deficit.. Normal speech. A/P Problem List: (1) Bipolar disorder ICD Code: F31.9 Status: Acute (2) Sleep apnea ICD Code: G47.30 Status: Chronic (3) HTN (hypertension) ICD Code: I10 Status: Chronic (4) Hyperlipidemia ICD Code: E78.5 Status: Chronic (5) DM type 2 (diabetes mellitus, type 2) ICD Code: E11.9 Status: Acute Assessment and Plan Patient is a 65-year-old male with primary medical history of diabetes, high cholesterol, hypertension, neuropathy, sleep apnea who came into the hospital under [place] act. Patient allegedly aggressive towards family members. Also reports visual auditory hallucinations. He is now admitted to inpatient medical psych unit for further evaluation. Consulted for medical management. Auditory or visual hallucination - management by psychiatry HTN - continue with home medications - carvedilol, losartan, Lasix/ KCL - Monitor BP trend - Controlled DM 2 - continue with home meds - metformin -Start Lantus 10 Units daily at bedtime - Start NovoLog 5 Units 3 times a day with meals - Monitor Accu-Cheks, insulin sliding scale, Sleep apnea - continue with CPAP use. Please arrangement respiratory therapist Neuropathy - continue Lyrica Left Second toe swelling - check x-ray - showed severely comminuted PIP fracture of the second toe. - Orthopedic consulted. Referred to podiatry. Given new orthotic shoe. Vertigo- meclizine 3 times a day 3 days Monitor response Continue physical therapy Fall with back pain imaging reviewed and reveals: Thoracic spine CT 1. No acute bony fracture. 2. Primary bony degenerative changes are noted throughout the thoracic spine. 3. Broad-based bulging at T10- 11 4. Broad-based and right lateral bulging T11-T12 Lumbar spine CT 1. No acute bony fracture. 2. Diffuse primary bony degenerative changes, disc degeneration and disc space narrowing at L3-4, L4-5 and L5-S1. 3. Moderate spinal canal stenosis at L3-4. 4. Mild spinal canal stenosis at L4-5 5. Bilateral facet arthritis at multiple levels. Cervical spine CT 1. No acute bony fracture. 2. Diffuse primary bony degenerative changes, disc degeneration are noted throughout the cervical spine. 3. Broad-based bulging with disc osteophyte complex at C6-7 4. Focal central bulging disc osteophyte complex at C5-6. Dizziness/vertigo, fall, resting and intention tremors- consult neurology for assistance EPS- continue Cogentin DVT prop early ambulation Discuss with patient, RN Written by Jessika Marquez, acting as scribe for Dr. Cuevas on 07/16/16 at 17 :48. The documentation accurately reflects the work performed [id number] by me on at 17:48. Problem Qualifiers (1) Bipolar disorder: Jessika Marquez Jul 16, 2016 17:49 Benjamin Cuevas DO Jul 16, 2016 22:34
[2016-07-16 18:00] VITALS: BP 113/60; PULSE 80; RESP 18; TEMP 98; O2SAT 96
[2016-07-16] MEDS: LOSARTAN 50 MG TAB PO SCH (18:35)
[2016-07-16 20:00] VITALS: BP 127/68; PULSE 84; RESP 21; TEMP 97.9; O2SAT 94
[2016-07-16] MEDS: diphenhydrAMINE HCL 50 MG CAP PO PRN (20:06)
[2016-07-16] MEDS ORDERED: INSULIN DETEMIR 100 UNITS/ML VIAL SQ SCH (21:00)
[2016-07-16] MEDS: MECLIZINE HCL 25 MG TAB PO SCH (22:00)
[2016-07-17 05:43] VITALS: BP 137/62; PULSE 78; RESP 16; TEMP 98.1; O2SAT 92
[2016-07-17] MEDS: MECLIZINE HCL 25 MG TAB PO SCH ×2 (06:06→13:22)
[2016-07-17] MEDS: INSULIN ASPART SUPPLEMENTAL SCALE SQ SCH ×4 (06:46→22:32)
--- NOTE | 2016-07-17 08:51 | MB ---
cc: OTF MONROY DATE OF CONSULTATION: 07/14/2016 CHIEF COMPLAINT Left second toe pain. HISTORY OF PRESENT ILLNESS The patient is a 65-year-old white male who was admitted and Vaughan Act'd in the psych unit after being notably aggressive towards family members. He states that he started noticing having left toe pain. He reports that he thinks it might have happened a couple weeks ago. He is unsure how he hurt his toe. He states that he is seen and has been seen by a carry out clerk and shelf stocker in [place]. His carry out clerk and shelf stocker is Dr. Albrecht. He reports that he has been placed into a post-op shoe and been weightbearing on his left foot. He states he has been attempting to put most of his weight on his heel. He states when he does this he is relatively comfortable. Overall he has minimal complaints. He is reported to have had visual and auditory hallucinations. Overall he is happy with his progress and has no complaints. I saw this patient briefly on July 11 due to an orthopedic consult that was placed; however, it was also noted that this was something that should be seen by podiatry. A podiatry consult was placed but failed to ever see the patient. REVIEW OF SYSTEMS Negative except for what is in the HPI. ALLERGIES No known allergies. PAST MEDICAL HISTORY 1. Diabetes. 2. Chronic back pain. 3. Hypertension. 4. Neuropathy. 5. High cholesterol. 6. Sleep apnea. PAST SURGICAL HISTORY 1. Abdominal surgery. 2. Tonsillectomy. MEDICATIONS Reported medications: Please see the EMR and patient's chart for complete list of medications. FAMILY HISTORY Mother with diabetes and hypertension. Father with hypertension. SOCIAL HISTORY Denies alcohol use, says he quit six years ago. Denies active tobacco or illicit drug use. PHYSICAL EXAMINATION VITAL SIGNS: Temperature 98.1, pulse 78, respiratory rate 16, blood pressure 132/62. O2 saturation 92 on room air. GENERAL: A well-developed, well-nourished, slightly overweight 65-year-old white male resting comfortably and eating at bedside, in no acute distress. HEAD: Normocephalic, atraumatic. EARS: Hearing intact bilaterally. EYES: Extraocular motion intact. Pupils equal, round, react to light. CRANIAL NERVES: Cranial nerves II-XII grossly intact. NECK: Supple. No evidence of lymphadenopathy. LUNGS: No auditory wheezes appreciated at bedside and no use of accessory muscles of breathing. HEART: No grade 4 murmur present. MUSCULOSKELETAL: Left leg full motion of the hip and knee and ankle with no pain. He has noted erythema and swelling of the second phalanx. It is slightly tender to touch. He has full sensation distally. Right lower extremity full motion hip, knee, ankle and toes and no pain. Neurovascularly intact with full sensation. Bilateral upper extremities. Full motion of the shoulders, elbows, wrists and fingers and no pain. Neurovascularly intact distally. Strength 5/5. IMAGING X-rays are reviewed from [facility] which show a comminuted second distal phalanx fracture to the left foot. ASSESSMENT Second distal phalanx fracture, left foot. PLAN At this point the patient will continue with his post-op shoe and he will be weightbearing as tolerated on the left leg. I did advise him to focus most of his weight on his heel so as to avoid any pain of displacement of the fracture. This is something that I think should be managed by podiatry. A podiatry consult has been placed but he has not been seen in the past three or four days since the consult was placed and a consult by podiatry is delinquent. No orthopedic treatment or surgery needs to be done at this time. He will be discharged from the orthopedic service. No orthopedic follow-up will be needed. He will follow-up with his carry out clerk and shelf stocker in [place]. Thank you for this consult. The above consult was reviewed and discussed with Dr. Collins and he agrees. Dictated by: Otf Monroy PA-C Otf Monroy [facility]/BT /7:01 AM /8:52 AM
[2016-07-17] MEDS: DICLOFENAC SODIUM 75 MG DELAYED RELEASE TAB PO SCH ×2 (08:54→22:33)
[2016-07-17] MEDS: PREGABALIN 75 MG CAP PO SCH ×3 (08:54→17:12)
[2016-07-17] MEDS: BENZTROPINE MESYLATE 1 MG TAB PO SCH ×3 (08:54→17:13)
[2016-07-17] MEDS: DIVALPROEX DR 500 MG TABEC PO SCH ×2 (08:54→22:33)
[2016-07-17] MEDS: CARVEDILOL 12.5 MG TAB PO SCH ×2 (08:54→22:32)
[2016-07-17] MEDS: DOCUSATE SODIUM 100 MG CAP PO SCH (08:54)
[2016-07-17] MEDS: busPIRone HCL 5 MG TAB PO SCH (08:54)
[2016-07-17] MEDS: FUROSEMIDE 40 MG TAB PO SCH ×2 (08:54→22:33)
[2016-07-17] MEDS: DULoxetine HCl DR 60 MG CAP PO SCH ×2 (08:54→22:33)
[2016-07-17] MEDS: ATORVASTATIN 40 MG TAB PO SCH (08:55)
[2016-07-17] MEDS: TAMSULOSIN HCL 0.4 MG CAP PO SCH (08:55)
[2016-07-17] MEDS: FENOFIBRATE 145 MG TAB PO SCH (08:55)
[2016-07-17] MEDS: metFORMIN HCL 500 MG TAB PO SCH ×2 (08:55→22:32)
[2016-07-17] MEDS: NICOTINE 21 MG/24 HR PATCH T-DERMAL SCH (08:55)
[2016-07-17] MEDS: REMOVE OLD PATCH T-DERMAL SCH (09:00)
[2016-07-17] MEDS: POTASSIUM CHLORIDE 20 MEQ PWD PACKET PO SCH (09:00)
[2016-07-17] MEDS: INSULIN ASPART 1,000 UNITS/10 ML VIAL SQ SCH ×3 (09:01→17:17)
--- NOTE | 2016-07-17 11:39 | MB ---
cc: KIMBERLY ESCOBEDO M.D. DATE OF CONSULTATION 07/17/2016 DATE OF 1950 REASON FOR CONSULTATION Vertigo, tremors. HISTORY The patient is a 65-year-old man with a history of diabetes, hypertension, hyperlipidemia, neuropathy of the lower extremities and sleep apnea who was Vaughan acted allegedly becoming aggressive towards family members. He had some visual and auditory hallucinations. Admitted to the psych malone, but apparently has been telling the physicians that he has been having vertigo when he moves his neck downward, as well as a tremor. The tremor, he states has been ongoing for some time. He is very somnolent, likely medication effect. He cannot elicit any further history. When I asked him if he has had a workup and who his neurologists were, he cannot tell me. HOME MEDICATIONS Please refer to MAR. Apparently, he is on at home: 1. Lyrica 2. Latuda 3. Depakote 4. Cogentin 5. Buspirone 6. Risperdal 7. Cymbalta 8. Crestor 9. Cozaar 10. Fenofibrate 11. Metformin 12. Insulin 13. Lortab CURRENT MEDICATIONS In the hospital are: 1. Insulin 2. Metformin 3. Losartan 4. Nicotine patch 5. Cogentin 6. Depakote 1000 mg b.i.d. 7. Buspirone 50 mg daily. 8. Duloxetine 60 mg b.i.d. 9. Lyrica 150 mg three times a day and other meds. PHYSICAL EXAM On exam, vitals temperature is 98.1, pulse 78, respiratory rate 16, blood pressure 137/62 sating at 96%. GENERAL: He is somnolent, arousable, tries to follow commands. HEAD, EYES, EARS, NOSE, AND THROAT: His pupils are reactive. His face is symmetrical. His speech is normal. NECK: He does have a large neck. NEUROLOGIC: Motor campos, there are no deficits noted in the arms. He does have a tremor mostly with intention, but a component of resting is noted. Cogwheeling is not seen. No drift. No leg lag. DTRs are trace. Unable to elicit lower. Toes are neutral. Gait cannot be assessed because of the sedation. Eyes, his pupils are reactive. There is no nystagmus. LABS Reviewed. His hemoglobin A1c is 9. Toxicology is negative. Depakote level is 52. His urine was unremarkable. except for 1000 urine. IMAGING STUDIES Cervical spine, no acute fracture, degenerate changes, broad-based bulging an osteophyte at C6 and C7 and complex also at C5-6. IMPRESSION A 64-year-old man with possible peripheral vertigo. Certainly rule out vertebral basilar insufficiency essential vertigo. We will get an MRI of the brain and [place] of [place]. Carotids have been ordered by the primary team. Have PT evaluate him and see if they can do an Jonathan maneuver, if not, outpatient PT. Continue meclizine p.r.n. Certainly he is on a lot of medicine that can also contribute. The tremor looks like an essential tremor. Certainly Depakote can contribute to his tremor as well. I did discuss with a primary team other options for his essential tremor, however, he is on so much medication concerning to add more medicine such as primidone. I will increase more sedation and higher risks for falls. Second line medications certainly such as Gabapentin and Topiramate can be used, but he is already on Lyrica. I would not add Gabapentin to that regimen. Topiramate is an option certainly can start at 50 mg at night and increase to b.i.d. dosing and see if that helps. The last option I would consider if psychiatry thinks it is warranted would be low dose clonazepam such as 0.5 mg b.i.d. to see if it decreases his tremor. I do not see any signs of Parkinson's disease. This may be Parkinsonism from antipsychotic medicines he had been on in the past, however it is unilateral so less likely. Continue current recommendations. If he has already established with neurology, he can continue to follow with that doctor, but if his imaging is negative, likely this is a peripheral vertical. If there are significant findings, further recommendations will be made accordingly and at that point probably put him on antiplatelets. MD DENNYS Carranza/JULY /11:15 AM 11:27 AM
--- NOTE | 2016-07-17 13:48 | HHI.PYPN ---
Subjective Remarks Patient seen for evaluation today, he seems to be responding appropriately to psychotropics, he describes good mood, denies suicidal or homicidal ideation, denies visual and auditory hallucinations. Patient reports good appetite, good sleep, good level of energy, he is fully oriented 3, no gross cognitive impairment observed, he is medication compliant. Review of Systems Other No somatic complaints Objective Alert: Yes [place]: Person, Place, Date, Situation Mood: Calm Affect: Euthymic Memory Intact: Immediate, Recent, Remote Hallucinations: Auditory ( does admit to hearing voices of his father and grandmother occasionally) Delusions: No Delusion Type: Other (patient is complaining of his mind racing will adjust the medication) Suicidal: Ideation (he denies) Homicidal: Ideation (he denies) Insight/Judgement Good Vitals/IOs Vital Signs Date Time Temp Pulse Resp B/P Pulse Ox O2 Delivery O2 Flow Rate FiO2 07/17/16 05:43 98.1 78 16 137/62 92 Intake and Output 07/16/16 07/16/16 07/17/16 08:00 16:00 00:00 Intake Total 240 ml 240 ml 960 ml Balance 240 ml 240 ml 960 ml Assessment & Plan Problem List: (1) Bipolar disorder Assessment & Plan: Patient continues to show good response to psychotropics, we 'll start the process to coordinate a safe discharge. ICD Code: F31.9 Assessment & Plan Estimated LOS: days Justification for Cont. Inpt. Coordination of safe discharge Request HC Surrog/Guard Advoc?: No Problem Qualifiers (1) Bipolar disorder: Marcus Kendrick MD Jul 17, 2016 13:48
[2016-07-17] MEDS ORDERED: MECLIZINE HCL 25 MG TAB PO PRN (14:45)
--- NOTE | 2016-07-17 14:49 | HHI.PR ---
Subjective Remarks Follow-up visit left second toe fracture, DM 2, HTN, fall, vertigo and EPS. Patient seen today. Patient reports he fell yesterday walking from the shower patient reports his, "vertigo acted up." Patient resting in bed appears fatigued/lethargic today. Denies dizziness. Able to arouse with voice. Has been seen by podiatry and was given shoe. Denies SOB/ dyspnea. Denies chest pain, palpitations, headaches, dizziness. Denies fevers, chills, n/v/d. Objective Vitals Vital Signs Date Time Temp Pulse Resp B/P Pulse Ox O2 Delivery O2 Flow Rate FiO2 07/17/16 05:43 98.1 78 16 137/62 92 07/16/16 22:33 20 07/16/16 20:00 97.9 84 21 127/68 94 07/16/16 19:00 20 07/16/16 18:00 98.0 80 18 113/60 96 I/O 07/16/16 07/16/16 07/16/16 07/17/16 07/17/16 07/17/16 07:00 15:00 23:00 07:00 15:00 23:00 Intake Total 240 ml 240 ml 360 ml 1080 ml 240 ml Balance 240 ml 240 ml 360 ml 1080 ml 240 ml Intake Oral 240 ml 240 ml 360 ml 1080 ml 240 ml # Voids 3 3 Objective Remarks GENERAL: This is a morbidly obese patient, in no apparent distress. SKIN: No rashes, ecchymoses or lesions. Cool and dry. HEAD: Atraumatic. Normocephalic. No temporal or scalp tenderness. EYES: Pupils equal round and reactive. Extraocular motions intact. No scleral icterus. No injection or drainage. ENT: Nose without bleeding. Throat without erythema. Uvula midline. Airway patent. NECK: Trachea midline. No JVD or lymphadenopathy. Supple, nontender, no meningeal signs. CARDIOVASCULAR: Regular rate and rhythm without murmurs, gallops, or rubs. RESPIRATORY: Clear to auscultation. Breath sounds equal bilaterally. No wheezes , rales, or rhonchi. GASTROINTESTINAL: Abdomen soft, non-tender, nondistended. Bowel sounds active 4 MUSCULOSKELETAL: Extremities without clubbing, cyanosis, or edema. No joint tenderness, effusion, or edema noted. No calf tenderness. Negative Homans sign bilaterally. Left second toe edema, no erythema noted, mild tenderness, able to move without difficulty NEUROLOGICAL: drowsy and alert. Oriented 3. Motor and sensory grossly within normal limits. No focal neuro deficit. Normal speech. A/P Problem List: (1) Bipolar disorder ICD Code: F31.9 Status: Acute (2) Sleep apnea ICD Code: G47.30 Status: Chronic (3) HTN (hypertension) ICD Code: I10 Status: Chronic (4) Hyperlipidemia ICD Code: E78.5 Status: Chronic (5) DM type 2 (diabetes mellitus, type 2) ICD Code: E11.9 Status: Acute Assessment and Plan Patient is a 65-year-old male with primary medical history of diabetes, high cholesterol, hypertension, neuropathy, sleep apnea who came into the hospital under Vaughan act. Patient allegedly aggressive towards family members. Also reports visual auditory hallucinations. He is now admitted to inpatient medical psych unit for further evaluation. Consulted for medical management. Auditory or visual hallucination - management by psychiatry HTN - continue with home medications - carvedilol, losartan, Lasix/ KCL - Monitor BP trend - Controlled DM 2 - continue with home meds - metformin -Start Lantus 10 Units daily at bedtime - Start NovoLog 5 Units 3 times a day with meals - Monitor Accu-Cheks, insulin sliding scale, Sleep apnea - continue with CPAP use. Please arrangement respiratory therapist Neuropathy - continue Lyrica Left Second toe swelling - check x-ray - showed severely comminuted PIP fracture of the second toe. - Orthopedic consulted. Referred to podiatry. Given new orthotic shoe. Vertigo- meclizine 3 times a day will changed to PRN secondary to drowsiness Monitor response Continue physical therapy Back pain: S/P Fall imaging reviewed and reveals: Thoracic spine CT 1. No acute bony fracture. 2. Primary bony degenerative changes are noted throughout the thoracic spine. 3. Broad-based bulging at T10- 11 4. Broad-based and right lateral bulging T11-T12 Lumbar spine CT 1. No acute bony fracture. 2. Diffuse primary bony degenerative changes, disc degeneration and disc space narrowing at L3-4, L4-5 and L5-S1. 3. Moderate spinal canal stenosis at L3-4. 4. Mild spinal canal stenosis at L4-5 5. Bilateral facet arthritis at multiple levels. Cervical spine CT 1. No acute bony fracture. 2. Diffuse primary bony degenerative changes, disc degeneration are noted throughout the cervical spine. 3. Broad-based bulging with disc osteophyte complex at C6-7 4. Focal central bulging disc osteophyte complex at C5-6. Discussed with neurology Dr. Snell recommended MRI, MRA [place] of [place] and US carotids EPS- continue Cogentin DVT prop early ambulation Discuss with patient, RN Written by Jessika Marquez, acting as scribe for Dr. Cuevas on 07/17/16 at 12 :48. The documentation accurately reflects the work performed [id number] by me on at 12:48 Problem Qualifiers (1) Bipolar disorder: Jessika Marquez Jul 17, 2016 14:49 Benjamin Cuevas DO Jul 17, 2016 19:07
[2016-07-17] MEDS: FLUTICASONE PROPIONATE 50 MCG/ACT 16 GM NASAL SPRAY SCH (17:13)
[2016-07-17 19:24] VITALS: BP 109/63; PULSE 81; RESP 18; TEMP 98.3; O2SAT 93
[2016-07-17] MEDS ORDERED: INSULIN DETEMIR 100 UNITS/ML VIAL SQ SCH (21:00)
[2016-07-17] MEDS: LOSARTAN 50 MG TAB PO SCH (23:05)
--- NOTE | 2016-07-17 23:09 | RADRPT ---
EXAM DATE/TIME: 07/17/2016 21:10 [facility] COMPARISON: No previous studies available for comparison. INDICATIONS : Syncope. MEDICAL HISTORY : Hypercholesterolemia. Hypertension. Hyperlipidemia. Sleep apnea. Herniated disks. Diabetes. Schizop hrenia. Bipolar disorder. SURGICAL HISTORY : Tonsillectomy. ENCOUNTER: Initial ACUITY: 1 day PAIN SCORE: 0/10 LOCATION: Right neck PEAK SYSTOLIC VELOCITIES (cm/sec): ICA/CCA RATIO: Right: 1.4 Left: 0.8 ICA: Right: 95 Left: 77 CCA: Right: 69 Left: 92 ECA: Right: 105 Left: 97 VERTEBRAL: Right: 53 antegrade Left: 36 antegrade Elevated flow velocities and ICA/CCA ratios have been found to correlate with increased degrees of vessel stenosis, calculated as percentage of diameter relative to a normal segment of distal ICA/CCA FINDINGS: RIGHT CAROTID: No significant stenosis is visualized. There is mild plaque. The waveforms are within normal limits. LEFT CAROTID: No significant stenosis is visualized. There is mild plaque. The waveforms are within normal limits. VERTEBRAL ARTERIES: Antegrade flow is seen in both vertebral arteries. MISCELLANEOUS: None. CONCLUSION: Mild plaquing with no evidence of stenosis. Acosta Cruz MD on July 17, 2016 at 23:05 Board Certified Radiologist. This report was verified electronically.
[2016-07-18] MEDS: diphenhydrAMINE HCL 50 MG CAP PO PRN ×2 (03:26→20:07)
[2016-07-18] MEDS: ACETAMINOPHEN/HYDROcodone 325 MG/10 MG TAB PO PRN ×2 (03:27→20:08)
[2016-07-18] MEDS: INSULIN ASPART SUPPLEMENTAL SCALE SQ SCH ×4 (06:03→20:09)
[2016-07-18 06:17] VITALS: BP 128/60; PULSE 80; RESP 16; TEMP 98.4; O2SAT 94
[2016-07-18] MEDS ORDERED: MECLIZINE HCL 25 MG TAB PO PRN (09:00)
[2016-07-18] MEDS: TOPIRAMATE 25 MG TAB PO SCH ×2 (09:00→20:09)
[2016-07-18] MEDS: NICOTINE 21 MG/24 HR PATCH T-DERMAL SCH (09:00)
[2016-07-18] MEDS: REMOVE OLD PATCH T-DERMAL SCH (09:00)
[2016-07-18] MEDS: POTASSIUM CHLORIDE 20 MEQ PWD PACKET PO SCH (09:00)
[2016-07-18] MEDS: FLUTICASONE PROPIONATE 50 MCG/ACT 16 GM NASAL SPRAY SCH (09:00)
[2016-07-18] MEDS ORDERED: PILL SPLITTER OTHER PRN (09:15)
[2016-07-18] MEDS: DIVALPROEX DR 500 MG TABEC PO SCH ×2 (09:16→20:08)
[2016-07-18] MEDS: FUROSEMIDE 40 MG TAB PO SCH ×2 (09:16→20:08)
[2016-07-18] MEDS: FENOFIBRATE 145 MG TAB PO SCH (09:16)
[2016-07-18] MEDS: INSULIN ASPART 1,000 UNITS/10 ML VIAL SQ SCH ×3 (09:16→16:54)
[2016-07-18] MEDS: CARVEDILOL 12.5 MG TAB PO SCH ×2 (09:16→20:08)
[2016-07-18] MEDS: DICLOFENAC SODIUM 75 MG DELAYED RELEASE TAB PO SCH ×2 (09:16→20:07)
[2016-07-18] MEDS: DULoxetine HCl DR 60 MG CAP PO SCH ×2 (09:17→20:07)
[2016-07-18] MEDS: metFORMIN HCL 500 MG TAB PO SCH ×2 (09:17→20:08)
[2016-07-18] MEDS: busPIRone HCL 5 MG TAB PO SCH (09:17)
[2016-07-18] MEDS: TAMSULOSIN HCL 0.4 MG CAP PO SCH (09:17)
[2016-07-18] MEDS: PREGABALIN 75 MG CAP PO SCH ×3 (09:17→16:54)
[2016-07-18] MEDS: ATORVASTATIN 40 MG TAB PO SCH (09:18)
[2016-07-18] MEDS: DOCUSATE SODIUM 100 MG CAP PO SCH (09:18)
[2016-07-18] MEDS: BENZTROPINE MESYLATE 1 MG TAB PO SCH ×3 (09:18→16:54)
--- NOTE | 2016-07-18 09:23 | RADRPT ---
EXAM DATE/TIME: 07/18/2016 08:40 [facility] COMPARISON: No previous studies available for comparison. INDICATIONS : Tremors. MEDICAL HISTORY : Hypertension. Diabetes mellitus type 2. SURGICAL HISTORY : Appendectomy. Abdominal obstruction ENCOUNTER: Subsequent ACUITY: 2 weeks PAIN SCORE: 0/10 LOCATION: cranial TECHNIQUE: Multiplanar, multisequence MRI of the brain was performed without contrast. FINDINGS: There is mild motion artifact. CEREBRUM: There is mild cerebral atrophy. Ventricles are normal in size. No evidence of midline shift, mass le pawel, hemorrhage or acute infarction. No extraaxial fluid collections are seen. The pituitary gland and suprasellar cistern are normal in configuration. WHITE MATTER: There is minimal periventricular and subcortical white matter signal change. POSTERIOR FOSSA: The cerebellum and brainstem demonstrate no abnormality. The 4th ventricle is midline. The cerebello pontine angle is unremarkable. The cerebellar tonsils are normal in position. DIFFUSION IMAGING: No focal areas of restricted diffusion are seen. No evidence of acute infarction. EXTRACRANIAL: There is minimal mucoperiosteal thickening within the maxillary antra. Otherwise, the visualized port ions of the orbits and paranasal sinuses are unremarkable. CONCLUSION: 1. No acute intracranial abnormality is identified to explain the clinical symptoms. 2. Chronic changes include mild cerebral atrophy and mild periventricular white matter change most li elizabeth representing chronic microvascular ischemia. Bill Mccann MD on July 18, 2016 at 9:14 Board Certified Radiologist. This report was verified electronically.
--- NOTE | 2016-07-18 09:27 | RADRPT ---
EXAM DATE/TIME: 07/18/2016 08:40 [facility] COMPARISON: No previous studies available for comparison. INDICATIONS : Tremors. MEDICAL HISTORY : Hypertension. Diabetes mellitus type 2. SURGICAL HISTORY : Appendectomy. Abdominal pain. ENCOUNTER: Subsequent ACUITY: 2 weeks PAIN SCORE: 0/10 LOCATION: cranial Please note a normal MRA of the brain does not entirely exclude the possibility of a small aneurysm, nor the possibility of distal intracranial vessel disease. TECHNIQUE: 3D time of flight MRA was performed. Source images, multiplanar STS MIP, and 3D volume MIP reconstru ctions were reviewed. FINDINGS: Anterior circulation: The internal carotid arteries demonstrate no abnormality or atherosclerotic change. A1 segments and m ore distal anterior cerebral arteries are symmetric and within normal limits. The middle cerebral art dinorah branches demonstrate symmetric flow related enhancement. No aneurysm or high-grade stenosis is id entified. Posterior circulation: There are patent posterior cerebral arteries bilaterally. Vertebral arteries are codominant. The basi lar artery and posterior cerebral arteries demonstrate no significant stenosis or abnormality. No ane urysm is visualized. CONCLUSION: No intracranial vascular abnormality is identified. Bill Mccann MD on July 18, 2016 at 9:22 Board Certified Radiologist. This report was verified electronically.
--- NOTE | 2016-07-18 13:58 | HHI.PR ---
Subjective Remarks Follow-up visit left second toe fracture, DM 2, HTN, fall, vertigo and EPS. Patient seen today resting in bed appears lethargic. Denies dizziness. Able to arouse with voice. Denies SOB/ dyspnea. Denies chest pain, palpitations, headaches, dizziness. Denies fevers, chills, n/v/d. Objective Vitals Vital Signs Date Time Temp Pulse Resp B/P Pulse Ox O2 Delivery O2 Flow Rate FiO2 07/18/16 06:17 98.4 80 16 128/60 94 07/18/16 04:27 18 07/17/16 19:24 98.3 81 18 109/63 93 I/O 07/17/16 07/17/16 07/17/16 07/18/16 07/18/16 07/18/16 07:00 15:00 23:00 07:00 15:00 23:00 Intake Total 1080 ml 240 ml 360 ml 720 ml 480 ml Output Total 350 ml Balance 1080 ml 240 ml 360 ml 720 ml 130 ml Intake Oral 1080 ml 240 ml 360 ml 720 ml 480 ml Output Urine Total 350 ml # Voids 3 4 Imaging Last Impressions Head Magnetic Resonance Angiography 07/18/16 0000 Signed Impressions: Service Date/Time: June 08:40 - CONCLUSION: No intracranial vascular abnormality is identified. Bill Mccann MD Brain MRI 07/18/16 0000 Signed Impressions: Service Date/Time: June 08:40 - CONCLUSION: 1. No acute intracranial abnormality is identified to explain the clinical symptoms. 2. Chronic changes include mild cerebral atrophy and mild periventricular white matter change most likely representing chronic microvascular ischemia. Bill Mccann MD Carotid Artery Ultrasound 07/17/16 0000 Signed Impressions: Service Date/Time: Sunday, July 17, 2016 21:10 - CONCLUSION: Mild plaquing with no evidence of stenosis. Acosta Cruz MD Thoracic Spine CT 07/15/16 2336 Signed Impressions: Service Date/Time: Saturday, July 16, 2016 00:18 - CONCLUSION: 1. No acute bony fracture. 2. Primary bony degenerative changes are noted throughout the thoracic spine. 3. Broad-based bulging at T10-11 4. Broad-based and right lateral bulging T11-T12 Ochoa Mehta MD Lumbar Spine CT 07/15/16 2336 Signed Impressions: Service Date/Time: Saturday, July 16, 2016 00:18 - CONCLUSION: 1. No acute bony fracture. 2. Diffuse primary bony degenerative changes, disc degeneration and disc space narrowing at L3-4, L4-5 and L5-S1. 3. Moderate spinal canal stenosis at L3-4. 4. Mild spinal canal stenosis at L4-5 5. Bilateral facet arthritis at multiple levels. Ochoa Mehta MD Cervical Spine CT 07/15/16 2336 Signed Impressions: Service Date/Time: Saturday, July 16, 2016 00:16 - CONCLUSION: 1. No acute bony fracture. 2. Diffuse primary bony degenerative changes, disc degeneration are noted throughout the cervical spine. 3. Broad-based bulging with disc osteophyte complex at C6-7 4. Focal central bulging disc osteophyte complex at C5-6. Ochoa Mehta MD Toe X-Ray 07/11/16 0000 Signed Impressions: Service Date/Time: June 19:33 - CONCLUSION: Severely comminuted PIP fracture of the second toe as above. Bill Morelos MD Chest X-Ray 07/10/16 0000 Signed Impressions: Service Date/Time: Sunday, July 10, 2016 15:04 - CONCLUSION: Normal examination for a patient of this age. Ochoa Mehta MD Objective Remarks GENERAL: This is a morbidly obese patient, in no apparent distress. SKIN: No rashes, ecchymoses or lesions. Cool and dry. HEAD: Atraumatic. Normocephalic. No temporal or scalp tenderness. EYES: Pupils equal round and reactive. Extraocular motions intact. No scleral icterus. No injection or drainage. ENT: Nose without bleeding. Throat without erythema. Uvula midline. Airway patent. NECK: Trachea midline. No JVD or lymphadenopathy. Supple, nontender, no meningeal signs. CARDIOVASCULAR: Regular rate and rhythm without murmurs, gallops, or rubs. RESPIRATORY: Clear to auscultation. Breath sounds equal bilaterally. No wheezes , rales, or rhonchi. GASTROINTESTINAL: Abdomen soft, non-tender, nondistended. Bowel sounds active 4 MUSCULOSKELETAL: Extremities without clubbing, cyanosis, or edema. No joint tenderness, effusion, or edema noted. No calf tenderness. Negative Homans sign bilaterally. Left second toe edema, no erythema noted, mild tenderness, able to move without difficulty NEUROLOGICAL: drowsy able to awake to voice. Motor and sensory grossly within normal limits. No focal neuro deficit. Normal speech. A/P Problem List: (1) Bipolar disorder ICD Code: F31.9 Status: Acute (2) Sleep apnea ICD Code: G47.30 Status: Chronic (3) HTN (hypertension) ICD Code: I10 Status: Chronic (4) Hyperlipidemia ICD Code: E78.5 Status: Chronic (5) DM type 2 (diabetes mellitus, type 2) ICD Code: E11.9 Status: Acute Assessment and Plan Patient is a 65-year-old male with primary medical history of diabetes, high cholesterol, hypertension, neuropathy, sleep apnea who came into the hospital under [place] act. Patient allegedly aggressive towards family members. Also reports visual auditory hallucinations. He is now admitted to inpatient medical psych unit for further evaluation. Consulted for medical management. Auditory or visual hallucination - management by psychiatry HTN - continue with home medications - carvedilol, losartan, Lasix/ KCL - Monitor BP trend - Controlled DM 2 - elevated -continue with home meds - metformin -Increase Levemir to 20 Units daily at bedtime -continue NovoLog 5 Units 3 times a day with meals - Monitor Accu-Cheks, insulin sliding scale, Sleep apnea - continue with CPAP use. Please arrangement respiratory therapist Neuropathy - continue Lyrica Left Second toe swelling - check x-ray - showed severely comminuted PIP fracture of the second toe. - Orthopedic consulted. Referred to podiatry. Given new orthotic shoe. Vertigo- meclizine 12.5mg 3 times a day PRN Monitor response Continue physical therapy Back pain: S/P Fall imaging reviewed and reveals: Thoracic spine CT 1. No acute bony fracture. 2. Primary bony degenerative changes are noted throughout the thoracic spine. 3. Broad-based bulging at T10- 11 4. Broad-based and right lateral bulging T11-T12 Lumbar spine CT 1. No acute bony fracture. 2. Diffuse primary bony degenerative changes, disc degeneration and disc space narrowing at L3-4, L4-5 and L5-S1. 3. Moderate spinal canal stenosis at L3-4. 4. Mild spinal canal stenosis at L4-5 5. Bilateral facet arthritis at multiple levels. Cervical spine CT 1. No acute bony fracture. 2. Diffuse primary bony degenerative changes, disc degeneration are noted throughout the cervical spine. 3. Broad-based bulging with disc osteophyte complex at C6-7 4. Focal central bulging disc osteophyte complex at C5-6. Discussed with neurology Dr. Snell recommended MRI, MRA [place] of [place] and US carotids Head MRA report: No intracranial vascular abnormality is identified MRI of brain report: 1. No acute intracranial abnormality is identified to explain the clinical symptoms. 2. Chronic changes include mild cerebral atrophy and mild periventricular white matter change most likely representing chronic microvascular ischemia. Ultrasound bilateral carotid artery reveals: Mild plaquing with no evidence of stenosis. EPS- continue Cogentin Tremors resting: Per Dr. Snell recommendations Topamax 50 mg twice a day started Patient to follow-up with outpatient neurologist for titration and management after discharge DVT prop early ambulation Discuss with patient, RN and Dr. Cuevas Patient appears medically stable for discharge. 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
[2016-07-18] MEDS ORDERED: TOPA25TA8 PO (14:00)
--- NOTE | 2016-07-18 14:14 | HHI.PYPN ---
Subjective Remarks Patient seen today for psychiatric reevaluation, he fell again last night and has been feeling dizzy, hospitalist saw him and recommended a neurology consult and MRI. However, patient reports good mood, he denies depressive symptoms, he is oriented 3, he denies suicidal or homicidal ideation, he denies visual and auditory hallucinations, patient has been medication compliant, no agitation or aggressive behavior observed or reported. Review of Systems Constitutional: COMPLAINS OF: Dizziness Endocrine: DENIES: Heat/cold intolerance, Polydipsia, Polyuria, Polyphagia Eyes: DENIES: Blurred vision, Diplopia, Eye inflammation, Eye pain, Vision loss , Photosensitivity, Double Vision Ears, nose, mouth, throat: DENIES: Tinnitus, Hearing loss, Vertigo, Nasal discharge, Oral lesions, Throat pain, Hoarseness, Ear Pain, Running Nose, Epistaxis, Sinus Pain, Toothache, Odynophagia Respiratory: DENIES: Apneas, Cough, Snoring, Wheezing, Hemoptysis, Sputum production, Shortness of breath Genitourinary: DENIES: Sexual dysfunction, Urinary frequency, Urinary incontinence, Urgency, Hematuria, Dysuria, Nocturia, Penile Discharge, Testicular Pain, Testicular Swelling Integumentary: DENIES: Abnormal pigmentation, Nail changes, Pruritus, Rash Hematologic/lymphatic: DENIES: Bruising, Lymphadenopathy Neurologic: DENIES: Abnormal gait, Headache, Localized weakness, Paresthesias, Seizures, Speech Problems, Tremor, Poor Balance Objective Alert: Yes [place]: Person, Place, Date, Situation Mood: Calm Affect: Euthymic Memory Intact: Immediate, Recent, Remote Hallucinations: Auditory ( does admit to hearing voices of his father and grandmother occasionally) Delusions: No Delusion Type: Other (patient is complaining of his mind racing will adjust the medication) Suicidal: Ideation (he denies) Homicidal: Ideation (he denies) Insight/Judgement Good Labs Patient continues to be psychiatric stable, no episodes of aggressive behavior or agitation observed, he denies suicidal or homicidal ideation, he denies visual and auditory hallucination. Patient is scheduled to be discharged tomorrow morning from psychiatry [facility] facility. Vitals/IOs Vital Signs Date Time Temp Pulse Resp B/P Pulse Ox O2 Delivery O2 Flow Rate FiO2 07/18/16 06:17 98.4 80 16 128/60 94 Intake and Output 07/17/16 07/17/1607/18/17 08:00 16:00 00:00 Intake Total 480 ml 240 ml 840 ml Balance 480 ml 240 ml 840 ml Assessment & Plan Problem List: (1) Bipolar disorder ICD Code: F31.9 Assessment & Plan Estimated LOS: days Justification for Cont. Inpt. Patient will be discharged tomorrow morning to [facility]. Request HC Surrog/Guard Advoc?: No Problem Qualifiers (1) Bipolar disorder: Marcus Kendrick MD Jul 18, 2016 14:14
[2016-07-18 18:16] VITALS: BP 102/56; PULSE 73; RESP 16; TEMP 98.1; O2SAT 91
[2016-07-18] MEDS: LOSARTAN 50 MG TAB PO SCH (18:47)
[2016-07-18] MEDS: INSULIN DETEMIR 100 UNITS/ML VIAL SQ SCH (20:09)
[2016-07-18 23:16] VITALS: BP 122/71; PULSE 76; RESP 16; TEMP 98.6; O2SAT 94
[2016-07-19 04:16] VITALS: BP 108/63; PULSE 97; RESP 17; TEMP 98.9; O2SAT 94
[2016-07-19] MEDS: INSULIN ASPART SUPPLEMENTAL SCALE SQ SCH ×4 (06:42→21:33)
[2016-07-19] MEDS: FLUTICASONE PROPIONATE 50 MCG/ACT 16 GM NASAL SPRAY SCH (08:16)
[2016-07-19] MEDS: INSULIN ASPART 1,000 UNITS/10 ML VIAL SQ SCH ×3 (08:16→16:44)
[2016-07-19] MEDS: metFORMIN HCL 500 MG TAB PO SCH ×2 (08:17→21:32)
[2016-07-19] MEDS: ATORVASTATIN 40 MG TAB PO SCH (08:17)
[2016-07-19] MEDS: TAMSULOSIN HCL 0.4 MG CAP PO SCH (08:18)
[2016-07-19] MEDS: DIVALPROEX DR 500 MG TABEC PO SCH (08:18)
[2016-07-19] MEDS: DOCUSATE SODIUM 100 MG CAP PO SCH (08:18)
[2016-07-19] MEDS: FUROSEMIDE 40 MG TAB PO SCH ×2 (08:18→21:31)
[2016-07-19] MEDS: FENOFIBRATE 145 MG TAB PO SCH (08:18)
[2016-07-19] MEDS: BENZTROPINE MESYLATE 1 MG TAB PO SCH ×3 (08:18→16:45)
[2016-07-19] MEDS: CARVEDILOL 12.5 MG TAB PO SCH ×2 (08:19→21:31)
[2016-07-19] MEDS: DULoxetine HCl DR 60 MG CAP PO SCH ×2 (08:19→21:31)
[2016-07-19] MEDS: POTASSIUM CHLORIDE 20 MEQ PWD PACKET PO SCH (08:21)
[2016-07-19] MEDS: TOPIRAMATE 25 MG TAB PO SCH ×2 (08:22→21:32)
[2016-07-19] MEDS: PREGABALIN 75 MG CAP PO SCH ×3 (09:00→16:50)
[2016-07-19] MEDS: DICLOFENAC SODIUM 75 MG DELAYED RELEASE TAB PO SCH ×2 (09:00→21:32)
[2016-07-19] MEDS: busPIRone HCL 5 MG TAB PO SCH (09:00)
[2016-07-19] MEDS: NICOTINE 21 MG/24 HR PATCH T-DERMAL SCH (09:00)
[2016-07-19] MEDS: REMOVE OLD PATCH T-DERMAL SCH (09:00)
--- NOTE | 2016-07-19 09:54 | RADRPT ---
EXAM DATE/TIME: 07/19/2016 09:15 [facility] COMPARISON: CHEST PA & LAT, July 10, 2016, 15:04. INDICATIONS : Short of breath. MEDICAL HISTORY : Hypertension. Diabetes mellitus type II. SURGICAL HISTORY : Appendectomy. Abdominal obstruction ENCOUNTER: Subsequent ACUITY: 4 - 6 days PAIN SCORE: 0/10 LOCATION: Bilateral chest FINDINGS: A single view of the chest demonstrates the lungs to be hypoaerated with diminished inspiratory effor t without evidence of mass, infiltrate or effusion. The cardiomediastinal contours are unremarkable. Osseous structures are intact. CONCLUSION: No acute disease. Reinier Andres MD on July 19, 2016 at 9:51 Board Certified Radiologist. This report was verified electronically.
[2016-07-19 10:19] LABS: BLOOD GAS BASE EXCESS 2.8 mmol/L (-2-2); BLOOD GAS HCO3 27 mmol/L (22-26); BLOOD GAS O2 HGB SATURATION 95 % (90-100); BLOOD GAS OXYGEN CONTENT 17.2 Vol % (12.0-20.0); BLOOD GAS PCO2 42 mmHg (38-42); BLOOD GAS PO2 106 mmHg (61-120); BLOOD GAS TOTAL HGB 12.7 G/DL (12.0-16.0); CRITICAL VALUE NO; DRAW SITE RT RADIAL; LITER FLOW 2 L/M; NUMBER OF ARTERIAL PUNCTURES 1; OXYGEN DEVICE NASAL CANNULA; STAT YES; TEMP CORR TO 98.6; ULNAR PULSE PRESENT
[2016-07-19 10:30] VITALS: O2SAT 95
[2016-07-19] MEDS ORDERED: RESP: ALBUTEROL 2.5 MG/IPRATROPIUM 0.5 MG NEB (PRN) NEB (10:30)
[2016-07-19 10:38] LABS: AUTOMATED NEUTROPHIL # 7.9 TH/MM3 (1.8-7.7); BASOPHIL % 0.3 % (0.0-2.0); EOSINOPHIL # 0.1 TH/MM3 (0-0.4); EOSINOPHIL % 0.5 % (0.0-4.0); HEMATOCRIT 37.6 % (39.0-51.0); HEMO FLAGS DIFF FINAL; LYMPH % 18.6 % (9.0-44.0); LYMPHOCYTE # 2.2 TH/MM3 (1.0-4.8); MEAN CELL VOLUME 82.1 FL (80.0-100.0); MEAN CORPUSCULAR HEMOGLOBIN 27.1 PG (27.0-34.0); MEAN CORPUSCULAR HGB CONC 33.1 % (32.0-36.0); MONO % 12.2 % (0.0-8.0); NEUT % 68.4 % (16.0-70.0); PLATELET COUNT 204 TH/MM3 (150-450); RED BLOOD COUNT 4.58 MIL/MM3 (4.50-5.90); RED CELL DISTRIBUTION WIDTH 14.8 % (11.6-17.2); WHITE BLOOD COUNT 11.6 TH/MM3 (4.0-11.0)
--- NOTE | 2016-07-19 11:14 | HHI.PYPN ---
Subjective Remarks On psychiatric evaluation today patient seems to be a little bit lethargic, distant, he reports that he feels tired "a little bit under the water", he reports dizziness, however he denies depression, he denies suicidal or homicidal ideation, denies visual and auditory hallucinations. The patient has been mostly in bed and not interacting in the way he used to. Review of Systems Constitutional: COMPLAINS OF: Fatigue, Dizziness Endocrine: DENIES: Heat/cold intolerance, Polydipsia, Polyuria, Polyphagia Eyes: DENIES: Blurred vision, Diplopia, Eye inflammation, Eye pain, Vision loss , Photosensitivity, Double Vision Ears, nose, mouth, throat: DENIES: Tinnitus, Hearing loss, Vertigo, Nasal discharge, Oral lesions, Throat pain, Hoarseness, Ear Pain, Running Nose, Epistaxis, Sinus Pain, Toothache, Odynophagia Respiratory: COMPLAINS OF: Shortness of breath, DENIES: Apneas, Cough, Snoring , Wheezing, Hemoptysis, Sputum production Cardiovascular: DENIES: Chest pain, Palpitations, Syncope, Dyspnea on Exertion , PND, Lower Extremity Edema, Orthopnea, Claudication Gastrointestinal: DENIES: Abdominal pain, Black stools, Bloody stools, Constipation, Diarrhea, Nausea, Vomiting, Difficulty Swallowing, Anorexia Musculoskeletal: DENIES: Joint pain, Muscle aches, Stiffness, Joint Swelling, Back pain, Neck pain Integumentary: DENIES: Abnormal pigmentation, Nail changes, Pruritus, Rash Hematologic/lymphatic: DENIES: Bruising, Lymphadenopathy Immunologic/allergic: DENIES: Eczema, Urticaria Neurologic: DENIES: Abnormal gait, Headache, Localized weakness, Paresthesias, Seizures, Speech Problems, Tremor, Poor Balance Objective Alert: Yes [place]: Person, Place, Date, Situation Mood: Calm Affect: Euthymic Memory Intact: Immediate, Recent, Remote Hallucinations: Auditory ( does admit to hearing voices of his father and grandmother occasionally) Delusions: No Delusion Type: Other (patient is complaining of his mind racing will adjust the medication) Suicidal: Ideation (he denies) Homicidal: Ideation (he denies) Insight/Judgement Good Labs Test 07/19/16 07/19/16 09:54 10:06 White Blood Count 11.6 TH/MM3 Red Blood Count 4.58 MIL/MM3 Hemoglobin 12.4 GM/DL Hematocrit 37.6 % Mean Corpuscular Volume 82.1 FL Mean Corpuscular Hemoglobin 27.1 PG Mean Corpuscular Hemoglobin 33.1 % Concent Red Cell Distribution Width 14.8 % Platelet Count 204 TH/MM3 Mean Platelet Volume 8.3 FL Neutrophils (%) (Auto) 68.4 % Lymphocytes (%) (Auto) 18.6 % Monocytes (%) (Auto) 12.2 % Eosinophils (%) (Auto) 0.5 % Basophils (%) (Auto) 0.3 % Neutrophils # (Auto) 7.9 TH/MM3 Lymphocytes # (Auto) 2.2 TH/MM3 Monocytes # (Auto) 1.4 TH/MM3 Eosinophils # (Auto) 0.1 TH/MM3 Basophils # (Auto) 0.0 TH/MM3 CBC Comment DIFF FINAL Differential Comment Blood Gas Puncture Site RT RADIAL Blood Gas Patient Temperature 98.6 Blood Gas HCO3 27 mmol/L Blood Gas Base Excess 2.8 mmol/L Blood Gas Oxygen Saturation 95 % Arterial Blood pH 7.42 Arterial Blood Partial 42 mmHg Pressure CO2 Arterial Blood Partial 106 mmHg Pressure O2 Arterial Blood Oxygen Content 17.2 Vol % Arterial Blood 2.0 % Carboxyhemoglobin Arterial Blood Methemoglobin 1.0 % Blood Gas Hemoglobin 12.7 G/DL Oxygen Delivery Device NASAL CANNULA Blood Gas Liter Flow 2 L/M Vitals/IOs Vital Signs Date Time Temp Pulse Resp B/P Pulse Ox O2 Delivery O2 Flow Rate FiO2 07/19/16 10:30 95 Nasal Cannula 2.00 07/19/16 04:16 98.9 97 17 108/63 Intake and Output 07/18/16 07/18/16 07/19/16 08:00 16:00 00:00 Intake Total 240 ml 480 ml 240 ml Output Total 350 ml Balance 240 ml 130 ml 240 ml Assessment & Plan Problem List: (1) Bipolar disorder Assessment & Plan: Patient was ready to be discharged today to [facility], he was accepted, but he has been feeling dizzy and lethargic. Hospitalist were made aware of the situation and they hold the medical clearance. An brain MRI were recently done and he was noted to be negative. Will continue current psychotropics, will hold discharged on the patient is medically clear. ICD Code: F31.9 Assessment & Plan Estimated LOS: days Justification for Cont. Inpt. Will hold discharge on the patient is medically clear Request HC Surrog/Guard Advoc?: No Problem Qualifiers (1) Bipolar disorder: Marcus Kendrick MD Jul 19, 2016 11:14
--- NOTE | 2016-07-19 11:19 | HHI.PR ---
Subjective Remarks Urgently called by nurse that patient has desaturating and lethargic. Pulse oxygenation 94% to 95 on 2 L nasal cannula- patient evaluated in no acute distress sitting on a bed just returned from ambulating to the bathroom. Patient is alert and oriented to person and place does seem to be somewhat confused Also follow-up visit left second toe fracture, DM 2, HTN, fall, vertigo and EPS. Denies dizziness. Denies SOB/ dyspnea. Denies chest pain, palpitations, headaches, dizziness. Denies fevers, chills, n/v/d, dysuria or frequency. Objective Vitals Vital Signs Date Time Temp Pulse Resp B/P Pulse Ox O2 Delivery O2 Flow Rate FiO2 07/19/16 10:30 95 Nasal Cannula 2.00 07/19/16 04:16 98.9 97 17 108/63 94 07/18/16 23:16 98.6 76 16 122/71 94 07/18/16 18:16 98.1 73 16 102/56 91 I/O 07/18/16 07/18/16 07/18/16 07/19/16 07/19/16 07/19/16 07:00 15:00 23:00 07:00 15:00 23:00 Intake Total 720 ml 480 ml 240 ml 240 ml Output Total 350 ml Balance 720 ml 130 ml 240 ml 240 ml Intake Oral 720 ml 480 ml 240 ml 240 ml Output Urine Total 350 ml # Voids 4 1 Result Diagram: 07/19/16 0954 Objective Remarks GENERAL: This is a morbidly obese patient, in no apparent distress. SKIN: No rashes, ecchymoses or lesions. Cool and dry. HEAD: Atraumatic. Normocephalic. No temporal or scalp tenderness. EYES: Pupils equal round and reactive. Extraocular motions intact. No scleral icterus. No injection or drainage. ENT: Nose without bleeding. Throat without erythema. Uvula midline. Airway patent. NECK: Trachea midline. No JVD or lymphadenopathy. Supple, nontender, no meningeal signs. CARDIOVASCULAR: Regular rate and rhythm without murmurs, gallops, or rubs. RESPIRATORY: Clear to auscultation. Breath sounds equal bilaterally. No wheezes , rales, or rhonchi. GASTROINTESTINAL: Abdomen soft, non-tender, nondistended. Bowel sounds active 4 MUSCULOSKELETAL: Extremities without clubbing, cyanosis, or edema. No joint tenderness, effusion, or edema noted. No calf tenderness. Negative Homans sign bilaterally. Left second toe edema, no erythema noted, mild tenderness, able to move without difficulty NEUROLOGICAL: Alert and oriented to person and place only. Able to follow commands. Motor and sensory grossly within normal limits. No focal neuro deficit. Normal speech. A/P Problem List: (1) Bipolar disorder ICD Code: F31.9 Status: Acute (2) Sleep apnea ICD Code: G47.30 Status: Chronic (3) HTN (hypertension) ICD Code: I10 Status: Chronic (4) Hyperlipidemia ICD Code: E78.5 Status: Chronic (5) DM type 2 (diabetes mellitus, type 2) ICD Code: E11.9 Status: Acute Assessment and Plan Patient is a 65-year-old male with primary medical history of diabetes, high cholesterol, hypertension, neuropathy, sleep apnea who came into the hospital under [place] act. Patient allegedly aggressive towards family members. Also reports visual auditory hallucinations. He is now admitted to inpatient medical psych unit for further evaluation. Consulted for medical management. Auditory or visual hallucination - management by psychiatry HTN - continue with home medications - carvedilol, losartan, Lasix/ KCL - Monitor BP trend - Controlled DM 2 - elevated -continue with home meds - metformin -Increase Levemir to 20 Units daily at bedtime -continue NovoLog 5 Units 3 times a day with meals - Monitor Accu-Cheks, insulin sliding scale, Sleep apnea - continue with CPAP use. Please arrangement respiratory therapist Neuropathy - continue Lyrica Left Second toe swelling - check x-ray - showed severely comminuted PIP fracture of the second toe. - Orthopedic consulted. Referred to podiatry. Given new orthotic shoe. Vertigo- meclizine 12.5mg 3 times a day PRN Monitor response Continue physical therapy Back pain: S/P Fall imaging reviewed and reveals: Thoracic spine CT 1. No acute bony fracture. 2. Primary bony degenerative changes are noted throughout the thoracic spine. 3. Broad-based bulging at T10- 11 4. Broad-based and right lateral bulging T11-T12 Lumbar spine CT 1. No acute bony fracture. 2. Diffuse primary bony degenerative changes, disc degeneration and disc space narrowing at L3-4, L4-5 and L5-S1. 3. Moderate spinal canal stenosis at L3-4. 4. Mild spinal canal stenosis at L4-5 5. Bilateral facet arthritis at multiple levels. Cervical spine CT 1. No acute bony fracture. 2. Diffuse primary bony degenerative changes, disc degeneration are noted throughout the cervical spine. 3. Broad-based bulging with disc osteophyte complex at C6-7 4. Focal central bulging disc osteophyte complex at C5-6. Discussed with neurology Dr. Snell recommended MRI, MRA [place] of [place] and US carotids Head MRA report: No intracranial vascular abnormality is identified MRI of brain report: 1. No acute intracranial abnormality is identified to explain the clinical symptoms. 2. Chronic changes include mild cerebral atrophy and mild periventricular white matter change most likely representing chronic microvascular ischemia. Ultrasound bilateral carotid artery reveals: Mild plaquing with no evidence of stenosis. EPS- continue Cogentin Tremors resting: Per Dr. Snell recommendations Topamax 50 mg twice a day started Patient to follow-up with outpatient neurologist for titration and management after discharge DVT prop early ambulation Blood gas revealed pH 7.42, PCO2 42, PO2 106 base excess 2.8 bicarbonate 27, CBC reviewed white blood cell count minimally elevated at 11.6 hemoglobin stable Ammonia pending UA pending Chest x-ray reviewed by myself as well as Dr. Cuevas is no acute disease process Discuss with patient, RN, Dr. Kendrick and Dr. Cuevas Recommend holding discharge due to patient's change in status Depakote level came back elevated 108. On hold Ammonia 22 Acute kidney injury creatinine 1.5 will start normal saline at 75 cc per hour 24 hours Recheck BMP in a.m. Problem Qualifiers (1) Bipolar disorder: Jessika Marquez Jul 19, 2016 11:19
[2016-07-19 12:09] LABS: BICARBONATE 30.2 MEQ/L (21.0-32.0); POTASSIUM 4.2 MEQ/L (3.5-5.1)
[2016-07-19 16:00] VITALS: BP 127/57; PULSE 81; RESP 18; TEMP 98.3; O2SAT 94
[2016-07-19 17:25] LABS: BACTERIA, URINE MOD /hpf; BLOOD, URINE SMALL (NEG); COMMENT (UR) CULTURE INDICATED; CULTURE IF INDICATED CULTURE INDICATED; GLUCOSE,URINE NEG (NEG); KETONE, URINE TRACE mg/dL (NEG); MUCUS URINE FEW /lpf (OCC); NITRITE,URINE NEG (NEG); PH, URINE 5.5 (5.0-8.5); URINE COLOR YELLOW (YELLW/STRAW)
[2016-07-19] MEDS: LOSARTAN 50 MG TAB PO SCH (18:25)
[2016-07-19] MEDS: SODIUM CHLOR 0.9% 1000 ML INJ 1,000 ML IV SCH (18:28)
[2016-07-19 20:47] VITALS: BP 141/73; PULSE 75; RESP 14; TEMP 98.4; O2SAT 92
[2016-07-19] MEDS: INSULIN DETEMIR 100 UNITS/ML VIAL SQ SCH (21:33)
[2016-07-19 22:25] VITALS: O2SAT 93
[2016-07-20] VITALS: BP 108/63; PULSE 80; RESP 16; TEMP 98.3; O2SAT 95
[2016-07-20] MEDS: diphenhydrAMINE HCL 50 MG CAP PO PRN ×2 (04:06→21:16)
[2016-07-20] MEDS: ACETAMINOPHEN/HYDROcodone 325 MG/10 MG TAB PO PRN ×2 (04:07→15:14)
[2016-07-20] MEDS: SODIUM CHLOR 0.9% 1000 ML INJ 1,000 ML IV SCH (05:20)
[2016-07-20 06:02] VITALS: BP 98/58; PULSE 71; RESP 16; TEMP 98.6; O2SAT 92
[2016-07-20] MEDS: INSULIN ASPART SUPPLEMENTAL SCALE SQ SCH ×4 (06:23→21:00)
[2016-07-20 07:15] VITALS: O2SAT 96
[2016-07-20] MEDS: INSULIN ASPART 1,000 UNITS/10 ML VIAL SQ SCH ×3 (08:00→17:00)
[2016-07-20 08:46] VITALS: BP 102/62; RESP 18; O2SAT 96
[2016-07-20] MEDS: FLUTICASONE PROPIONATE 50 MCG/ACT 16 GM NASAL SPRAY SCH (09:00)
[2016-07-20] MEDS: NICOTINE 21 MG/24 HR PATCH T-DERMAL SCH (09:00)
[2016-07-20] MEDS: POTASSIUM CHLORIDE 20 MEQ PWD PACKET PO SCH (09:00)
[2016-07-20] MEDS: CARVEDILOL 12.5 MG TAB PO SCH (09:00)
[2016-07-20] MEDS: REMOVE OLD PATCH T-DERMAL SCH (09:00)
[2016-07-20] MEDS: AMOXICILLIN/CLAVULANATE K 875 MG TAB PO SCH ×2 (09:00→21:17)
[2016-07-20] MEDS: DOCUSATE SODIUM 100 MG CAP PO SCH (09:03)
[2016-07-20] MEDS: DICLOFENAC SODIUM 75 MG DELAYED RELEASE TAB PO SCH ×2 (09:03→21:00)
[2016-07-20] MEDS: ATORVASTATIN 40 MG TAB PO SCH (09:03)
[2016-07-20] MEDS: PREGABALIN 75 MG CAP PO SCH ×3 (09:03→18:00)
[2016-07-20] MEDS: DULoxetine HCl DR 60 MG CAP PO SCH ×2 (09:04→21:17)
[2016-07-20] MEDS: busPIRone HCL 5 MG TAB PO SCH (09:04)
[2016-07-20] MEDS: metFORMIN HCL 500 MG TAB PO SCH (09:04)
[2016-07-20] MEDS: FUROSEMIDE 40 MG TAB PO SCH (09:05)
[2016-07-20] MEDS: TOPIRAMATE 25 MG TAB PO SCH ×2 (09:05→21:17)
[2016-07-20] MEDS: BENZTROPINE MESYLATE 1 MG TAB PO SCH ×3 (09:05→18:00)
[2016-07-20] MEDS: FENOFIBRATE 145 MG TAB PO SCH (09:05)
[2016-07-20] MEDS: TAMSULOSIN HCL 0.4 MG CAP PO SCH (09:06)
--- NOTE | 2016-07-20 11:22 | HHI.PR ---
Subjective Remarks follow-up visit left second toe fracture, DM 2, HTN, fall, vertigo, EPS and AMS. Patient sitting up in chair on room air. Saturating well. Alert and oriented 3 today more alert. Denies dizziness. Denies SOB/ dyspnea. Denies chest pain, palpitations, headaches, dizziness. Denies fevers, chills, n/v/d. Objective Vitals Vital Signs Date Time Temp Pulse Resp B/P Pulse Ox O2 Delivery O2 Flow Rate FiO2 07/20/16 08:49 96 Room Air 07/20/16 08:46 18 102/62 96 07/20/16 07:15 96 Nasal Cannula 2.00 07/20/16 06:02 98.6 71 16 98/58 92 07/20/16 00:00 98.3 80 16 108/63 95 07/19/16 22:25 93 Nasal Cannula 2.00 07/19/16 20:47 98.4 75 14 141/73 92 07/19/16 16:00 98.3 81 18 127/57 94 I/O 07/19/16 07/19/16 07/19/16 07/20/16 07/20/16 07/20/16 07:00 15:00 23:00 07:00 15:00 23:00 Intake Total 240 ml 980 ml 740 ml Output Total 2 ml 1450 ml Balance 240 ml 978 ml -710 ml Intake Oral 240 ml 980 ml 740 ml Output Urine Total 2 ml 1450 ml # Voids 1 # Bowel Movements 0 Result Diagram: 07/19/16 0954 07/19/16 1117 Imaging Last Impressions Chest X-Ray 07/19/16 0000 Signed Impressions: Service Date/Time: Tuesday, July 19, 2016 09:15 - CONCLUSION: No acute disease. Reinier Andres MD Head Magnetic Resonance Angiography 07/18/16 0000 Signed Impressions: Service Date/Time: June 08:40 - CONCLUSION: No intracranial vascular abnormality is identified. Bill Mccann MD Brain MRI 07/18/16 0000 Signed Impressions: Service Date/Time: June 08:40 - CONCLUSION: 1. No acute intracranial abnormality is identified to explain the clinical symptoms. 2. Chronic changes include mild cerebral atrophy and mild periventricular white matter change most likely representing chronic microvascular ischemia. Bill Mccann MD Carotid Artery Ultrasound 07/17/16 0000 Signed Impressions: Service Date/Time: Sunday, July 17, 2016 21:10 - CONCLUSION: Mild plaquing with no evidence of stenosis. Acosta Cruz MD Thoracic Spine CT [id number]/15/162335 Signed Impressions: Service Date/Time: Saturday, July 16, 2016 00:18 - CONCLUSION: 1. No acute bony fracture. 2. Primary bony degenerative changes are noted throughout the thoracic spine. 3. Broad-based bulging at T10-11 4. Broad-based and right lateral bulging T11-T12 Ochoa Mehta MD Lumbar Spine CT [id number]/15/[id number] Signed Impressions: Service Date/Time: Saturday, July 16, 2016 00:18 - CONCLUSION: 1. No acute bony fracture. 2. Diffuse primary bony degenerative changes, disc degeneration and disc space narrowing at L3-4, L4-5 and L5-S1. 3. Moderate spinal canal stenosis at L3-4. 4. Mild spinal canal stenosis at L4-5 5. Bilateral facet arthritis at multiple levels. Ochoa Mehta MD Cervical Spine CT [id number]/15/162335 Signed Impressions: Service Date/Time: Saturday, July 16, 2016 00:16 - CONCLUSION: 1. No acute bony fracture. 2. Diffuse primary bony degenerative changes, disc degeneration are noted throughout the cervical spine. 3. Broad-based bulging with disc osteophyte complex at C6-7 4. Focal central bulging disc osteophyte complex at C5-6. Ochoa Mehta MD Toe X-Ray 07/11/16 0000 Signed Impressions: Service Date/Time: June 19:33 - CONCLUSION: Severely comminuted PIP fracture of the second toe as above. Bill Morelos MD Objective Remarks GENERAL: This is a morbidly obese patient, in no apparent distress. SKIN: No rashes, ecchymoses or lesions. Cool and dry. HEAD: Atraumatic. Normocephalic. No temporal or scalp tenderness. EYES: Pupils equal round and reactive. Extraocular motions intact. No scleral icterus. No injection or drainage. ENT: Nose without bleeding. Throat without erythema. Uvula midline. Airway patent. NECK: Trachea midline. No JVD or lymphadenopathy. Supple, nontender, no meningeal signs. CARDIOVASCULAR: Regular rate and rhythm without murmurs, gallops, or rubs. RESPIRATORY: Clear to auscultation. Breath sounds equal bilaterally. No wheezes , rales, or rhonchi. GASTROINTESTINAL: Abdomen soft, non-tender, nondistended. Bowel sounds active 4 MUSCULOSKELETAL: Extremities without clubbing, cyanosis, or edema. No joint tenderness, effusion, or edema noted. No calf tenderness. Negative Homans sign bilaterally. Left second toe edema, no erythema noted, mild tenderness, able to move without difficulty NEUROLOGICAL: Alert and oriented 3- more alert today. Motor and sensory grossly within normal limits. No focal deficits appreciated A/P Problem List: (1) Bipolar disorder ICD Code: F31.9 Status: Acute (2) Sleep apnea ICD Code: G47.30 Status: Chronic (3) HTN (hypertension) ICD Code: I10 Status: Chronic (4) Hyperlipidemia ICD Code: E78.5 Status: Chronic (5) DM type 2 (diabetes mellitus, type 2) ICD Code: E11.9 Status: Acute Assessment and Plan Patient is a 65-year-old male with primary medical history of diabetes, high cholesterol, hypertension, neuropathy, sleep apnea who came into the hospital under [place] act. Patient allegedly aggressive towards family members. Also reports visual auditory hallucinations. He is now admitted to inpatient medical psych unit for further evaluation. Consulted for medical management. Auditory or visual hallucination - management by psychiatry HTN -now hypotensive Decrease losartan to 25 mg daily- placed on hold secondary to renal function decrease Coreg to 6.25 mg twice a day decrease Lasix to 40 mg daily, Lasix/ KCL - Monitor BP trend DM 2 - elevated -continue with home meds -metformin on hold secondary to renal function -Increase Levemir to 25 Units daily at bedtime -continue NovoLog 5 Units 3 times a day with meals - Monitor Accu-Cheks, insulin sliding scale, Sleep apnea - continue with CPAP use. Neuropathy - continue Lyrica Left Second toe swelling - check x-ray - showed severely comminuted PIP fracture of the second toe. - Orthopedic consulted. Referred to podiatry. Given new orthotic shoe. Vertigo- meclizine 12.5mg 3 times a day PRN Monitor response Continue physical therapy Back pain: S/P Fall imaging reviewed and reveals: Thoracic spine CT 1. No acute bony fracture. 2. Primary bony degenerative changes are noted throughout the thoracic spine. 3. Broad-based bulging at T10- 11 4. Broad-based and right lateral bulging T11-T12 Lumbar spine CT 1. No acute bony fracture. 2. Diffuse primary bony degenerative changes, disc degeneration and disc space narrowing at L3-4, L4-5 and L5-S1. 3. Moderate spinal canal stenosis at L3-4. 4. Mild spinal canal stenosis at L4-5 5. Bilateral facet arthritis at multiple levels. Cervical spine CT 1. No acute bony fracture. 2. Diffuse primary bony degenerative changes, disc degeneration are noted throughout the cervical spine. 3. Broad-based bulging with disc osteophyte complex at C6-7 4. Focal central bulging disc osteophyte complex at C5-6. Discussed with neurology Dr. Snell recommended MRI, MRA [place] and US carotids Head MRA report: No intracranial vascular abnormality is identified MRI of brain report: 1. No acute intracranial abnormality is identified to explain the clinical symptoms. 2. Chronic changes include mild cerebral atrophy and mild periventricular white matter change most likely representing chronic microvascular ischemia. Ultrasound bilateral carotid artery reveals: Mild plaquing with no evidence of stenosis. EPS- continue Cogentin Tremors resting: Per Dr. Snell recommendations Topamax 50 mg twice a day started Patient to follow-up with outpatient neurologist for titration and management after discharge DVT prop early ambulation Blood gas revealed pH 7.42, PCO2 42, PO2 106 base excess 2.8 bicarbonate 27, CBC reviewed white blood cell count minimally elevated at 11.6 hemoglobin stable Ammonia 22 UA reviewed trace protein negative nitrates large amount leukocyte esterase white blood cells blood cell with clumps and bacteria present Chest x-ray reviewed by myself as well as Dr. Cuevas is no acute disease process Depakote on hold secondary to elevated levels UTI will start Augmentin and follow for culture results Acute kidney injury As needed receive one bag of IV fluids last night BMP pending this morning Lasix decreased to 40 mg daily May need to DC if creatinine remains elevated Discuss with patient, RN and Dr. Cuevas Recommend holding discharge due to patient's change in status Problem Qualifiers (1) Bipolar disorder: Jessika Marquez Jul 20, 2016 11:22 am Benjamin Cuevas DO Jul 20, 2016 2:06 pm
[2016-07-20 13:12] LABS: BICARBONATE 30.4 MEQ/L (21.0-32.0); POTASSIUM 3.9 MEQ/L (3.5-5.1)
[2016-07-20 18:00] VITALS: BP 123/56; PULSE 81; RESP 20; TEMP 98; O2SAT 92
[2016-07-20] MEDS ORDERED: LOSARTAN 25 MG TAB PO SCH (19:00)
[2016-07-20] MEDS ORDERED: INSULIN DETEMIR 100 UNITS/ML VIAL SQ SCH (21:00)
[2016-07-20] MEDS: CARVEDILOL 6.25 MG TAB PO SCH (21:00)
[2016-07-20] MEDS: DIVALPROEX SODIUM E.R. 250 MG TAB PO SCH (21:00)
[2016-07-21] VITALS (7 sets, daily range): BP systolic 109–124; BP diastolic 55–73; PULSE 75–95; RESP 15–17; TEMP 97.5–98.7; O2SAT 94–98
[2016-07-21] MEDS: ACETAMINOPHEN/HYDROcodone 325 MG/10 MG TAB PO PRN ×2 (01:49→08:46)
[2016-07-21] MEDS ORDERED: diphenhydrAMINE HCL 50 MG/ML VIAL IM ONE (04:00)
[2016-07-21] MEDS ORDERED: HALOPERIDOL LACTATE 5 MG/ML AMP IM ONE (04:00)
[2016-07-21] MEDS: INSULIN ASPART SUPPLEMENTAL SCALE SQ SCH ×4 (06:30→20:39)
[2016-07-21] MEDS: FLUTICASONE PROPIONATE 50 MCG/ACT 16 GM NASAL SPRAY SCH (08:32)
[2016-07-21] MEDS: INSULIN ASPART 1,000 UNITS/10 ML VIAL SQ SCH ×3 (08:35→16:36)
[2016-07-21] MEDS: POTASSIUM CHLORIDE 20 MEQ PWD PACKET PO SCH (08:51)
[2016-07-21] MEDS: DIVALPROEX SODIUM E.R. 250 MG TAB PO SCH ×2 (08:51→20:26)
[2016-07-21] MEDS: TOPIRAMATE 25 MG TAB PO SCH ×2 (08:52→20:26)
[2016-07-21] MEDS: AMOXICILLIN/CLAVULANATE K 875 MG TAB PO SCH (08:52)
[2016-07-21] MEDS: FUROSEMIDE 40 MG TAB PO SCH (08:53)
[2016-07-21] MEDS: BENZTROPINE MESYLATE 1 MG TAB PO SCH ×3 (08:53→18:12)
[2016-07-21] MEDS: FENOFIBRATE 145 MG TAB PO SCH (08:53)
[2016-07-21] MEDS: DICLOFENAC SODIUM 75 MG DELAYED RELEASE TAB PO SCH ×2 (08:54→20:27)
[2016-07-21] MEDS: DULoxetine HCl DR 60 MG CAP PO SCH ×2 (08:55→20:26)
[2016-07-21] MEDS: PREGABALIN 75 MG CAP PO SCH ×3 (08:55→18:11)
[2016-07-21] MEDS: CARVEDILOL 6.25 MG TAB PO SCH ×2 (08:55→20:26)
[2016-07-21] MEDS: ATORVASTATIN 40 MG TAB PO SCH (08:55)
[2016-07-21] MEDS: busPIRone HCL 5 MG TAB PO SCH (08:55)
[2016-07-21] MEDS: TAMSULOSIN HCL 0.4 MG CAP PO SCH (09:00)
[2016-07-21] MEDS: DOCUSATE SODIUM 100 MG CAP PO SCH (09:00)
[2016-07-21] MEDS: REMOVE OLD PATCH T-DERMAL SCH (09:00)
[2016-07-21] MEDS: NICOTINE 21 MG/24 HR PATCH T-DERMAL SCH (09:00)
--- NOTE | 2016-07-21 09:53 | HHI.PR ---
Subjective Remarks follow-up visit left second toe fracture, DM 2, HTN, fall, vertigo, EPS and AMS. Patient sitting up on edge of bed with RN in room. Appears more alert today. on room air. Alert and oriented 3. Reports feeling better today. Denies dizziness at this time- reports dizziness usually occurs in the shower. Denies SOB/ dyspnea. Denies chest pain, palpitations, headaches, dizziness. Denies fevers, chills, n/v/d. Objective Vitals Vital Signs Date Time Temp Pulse Resp B/P Pulse Ox O2 Delivery O2 Flow Rate FiO2 07/21/16 07:09 95 21 07/21/16 07:00 97.5 94 15 121/68 97 07/21/16 04:09 98.7 95 16 124/73 94 07/21/16 00:00 98.4 75 16 109/55 94 Manual Cuff/Auscultation 07/20/16 22:00 Nasal Cannula 2.00 07/20/16 20:00 Room Air 2.00 07/20/16 18:00 98.0 81 20 123/56 92 I/O 07/20/16 07/20/16 07/20/16 07/21/16 07/21/16 07/21/16 07:00 15:00 23:00 07:00 15:00 23:00 Intake Total 740 ml 1040 ml 500 ml 360 ml 1480 ml Output Total 1450 ml Balance -710 ml 1040 ml 500 ml 360 ml 1480 ml Intake Oral 740 ml 1040 ml 500 ml 360 ml 1480 ml Output Urine Total 1450 ml # Voids 2 2 2 # Bowel Movements 0 1 0 0 Result Diagram: 07/19/16 0954 07/20/16 1220 Imaging Last Impressions Chest X-Ray 07/19/16 0000 Signed Impressions: Service Date/Time: Tuesday, July 19, 2016 09:15 - CONCLUSION: No acute disease. Reinier Andres MD Head Magnetic Resonance Angiography 07/18/16 0000 Signed Impressions: Service Date/Time: June 08:40 - CONCLUSION: No intracranial vascular abnormality is identified. Bill Mccann MD Brain MRI 07/18/16 0000 Signed Impressions: Service Date/Time: June 08:40 - CONCLUSION: 1. No acute intracranial abnormality is identified to explain the clinical symptoms. 2. Chronic changes include mild cerebral atrophy and mild periventricular white matter change most likely representing chronic microvascular ischemia. Bill Mccann MD Carotid Artery Ultrasound 07/17/16 0000 Signed Impressions: Service Date/Time: Sunday, July 17, 2016 21:10 - CONCLUSION: Mild plaquing with no evidence of stenosis. Acosta Cruz MD Thoracic Spine CT [id number]/15/[id number] Signed Impressions: Service Date/Time: Saturday, July 16, 2016 00:18 - CONCLUSION: 1. No acute bony fracture. 2. Primary bony degenerative changes are noted throughout the thoracic spine. 3. Broad-based bulging at T10-11 4. Broad-based and right lateral bulging T11-T12 Ochoa Mehta MD Lumbar Spine CT [id number]/15/[id number] Signed Impressions: Service Date/Time: Saturday, July 16, 2016 00:18 - CONCLUSION: 1. No acute bony fracture. 2. Diffuse primary bony degenerative changes, disc degeneration and disc space narrowing at L3-4, L4-5 and L5-S1. 3. Moderate spinal canal stenosis at L3-4. 4. Mild spinal canal stenosis at L4-5 5. Bilateral facet arthritis at multiple levels. Ochoa Mehta MD Cervical Spine CT [id number]/15/162335 Signed Impressions: Service Date/Time: Saturday, July 16, 2016 00:16 - CONCLUSION: 1. No acute bony fracture. 2. Diffuse primary bony degenerative changes, disc degeneration are noted throughout the cervical spine. 3. Broad-based bulging with disc osteophyte complex at C6-7 4. Focal central bulging disc osteophyte complex at C5-6. Ochoa Mehta MD Toe X-Ray 07/11/16 0000 Signed Impressions: Service Date/Time: June 19:33 - CONCLUSION: Severely comminuted PIP fracture of the second toe as above. Bill Morelos MD Objective Remarks GENERAL: This is a morbidly obese patient, in no apparent distress. SKIN: No rashes, ecchymoses or lesions. Cool and dry. HEAD: Atraumatic. Normocephalic. No temporal or scalp tenderness. EYES: Pupils equal round and reactive. Extraocular motions intact. No scleral icterus. No injection or drainage. ENT: Nose without bleeding. Throat without erythema. Uvula midline. Airway patent. NECK: Trachea midline. No JVD or lymphadenopathy. Supple, nontender, no meningeal signs. CARDIOVASCULAR: Regular rate and rhythm without murmurs, gallops, or rubs. RESPIRATORY: Clear to auscultation. Breath sounds equal bilaterally. No wheezes , rales, or rhonchi. GASTROINTESTINAL: Abdomen soft, non-tender, nondistended. Bowel sounds active 4 MUSCULOSKELETAL: Extremities without clubbing, cyanosis, or edema. No joint tenderness, effusion, or edema noted. No calf tenderness. Negative Homans sign bilaterally. Left second toe edema, no erythema noted, mild tenderness, able to move without difficulty NEUROLOGICAL: Alert and oriented 3- more alert today. Motor and sensory grossly within normal limits. No focal deficits appreciated A/P Problem List: (1) Bipolar disorder ICD Code: F31.9 Status: Acute (2) Sleep apnea ICD Code: G47.30 Status: Chronic (3) HTN (hypertension) ICD Code: I10 Status: Chronic (4) Hyperlipidemia ICD Code: E78.5 Status: Chronic (5) DM type 2 (diabetes mellitus, type 2) ICD Code: E11.9 Status: Acute Assessment and Plan Patient is a 65-year-old male with primary medical history of diabetes, high cholesterol, hypertension, neuropathy, sleep apnea who came into the hospital under [place] act. Patient allegedly aggressive towards family members. Also reports visual auditory hallucinations. He is now admitted to inpatient medical psych unit for further evaluation. Consulted for medical management. Auditory or visual hallucination - management by psychiatry HTN -improving losartan to 25 mg daily- placed on hold secondary to renal function continue Coreg to 6.25 mg twice a day, Lasix to 40 mg daily, Lasix/ KCL - Monitor BP trend DM 2 - remains elevated -metformin on hold secondary to renal function recheck BMP in AM -Increase Levemir to 30 Units daily at bedtime -increase NovoLog to 7 Units 3 times a day with meals - Monitor Accu-Cheks, insulin sliding scale, Sleep apnea - continue with CPAP use. Neuropathy - continue Lyrica Left Second toe swelling - check x-ray - showed severely comminuted PIP fracture of the second toe. - Orthopedic consulted. Referred to podiatry. Given new orthotic shoe. Vertigo- meclizine 12.5mg 3 times a day PRN Monitor response Continue physical therapy Back pain: S/P Fall imaging reviewed and reveals: Thoracic spine CT 1. No acute bony fracture. 2. Primary bony degenerative changes are noted throughout the thoracic spine. 3. Broad-based bulging at T10- 11 4. Broad-based and right lateral bulging T11-T12 Lumbar spine CT 1. No acute bony fracture. 2. Diffuse primary bony degenerative changes, disc degeneration and disc space narrowing at L3-4, L4-5 and L5-S1. 3. Moderate spinal canal stenosis at L3-4. 4. Mild spinal canal stenosis at L4-5 5. Bilateral facet arthritis at multiple levels. Cervical spine CT 1. No acute bony fracture. 2. Diffuse primary bony degenerative changes, disc degeneration are noted throughout the cervical spine. 3. Broad-based bulging with disc osteophyte complex at C6-7 4. Focal central bulging disc osteophyte complex at C5-6. Discussed with neurology Dr. Snell recommended MRI, MRA [place] and US carotids Head MRA report: No intracranial vascular abnormality is identified MRI of brain report: 1. No acute intracranial abnormality is identified to explain the clinical symptoms. 2. Chronic changes include mild cerebral atrophy and mild periventricular white matter change most likely representing chronic microvascular ischemia. Ultrasound bilateral carotid artery reveals: Mild plaquing with no evidence of stenosis. EPS- continue Cogentin Tremors: Per Dr. Snell recommendations Topamax 50 mg twice a day started Patient to follow-up with outpatient neurologist for titration and management after discharge DVT prop early ambulation UTI will start Augmentin and follow for culture results Urine culture reveals gram neg rods Acute kidney injury post one bag of IV fluids last night BMP in AM Lasix decreased to 40 mg daily May need to DC if creatinine remains elevated Discuss with patient, RN and Dr. Cuevas Problem Qualifiers (1) Bipolar disorder: Jessika Marquez Jul 21, 2016 9:53 am Benjamin Cuevas DO Jul 21, 2016 1:06 pm
--- NOTE | 2016-07-21 10:03 | HHI.PYPN ---
Subjective Remarks Patient seen for reevaluation today along with nurse in charge [place], earlier this morning the patient became agitated, disoriented, requesting to be discharged, verbally hostile and disorganized, was medicated with Haldol 5 mg IM and Benadryl 25 mg IM to help him to calm down, hours later at the time of the reevaluation patient is awake, alert, eating his breakfast, calm and cooperative, oriented 3, without any attention deficit, no visible fluctuation of consciousness, reporting good mood, denies suicidal and homicidal ideation, denies visual and auditory hallucinations. Review of Systems Other No somatic complaints Objective Alert: Yes [place]: Person, Place, Date, Situation Mood: Calm Affect: Euthymic Memory Intact: Immediate, Recent, Remote Hallucinations: Auditory ( does admit to hearing voices of his father and grandmother occasionally) Delusions: No Delusion Type: Other (patient is complaining of his mind racing will adjust the medication) Suicidal: Ideation (he denies) Homicidal: Ideation (he denies) Insight/Judgement Good Labs Test 07/20/16 12:20 Sodium Level 141 MEQ/L Potassium Level 3.9 MEQ/L Chloride Level 102 MEQ/L Carbon Dioxide Level 30.4 MEQ/L Anion Gap 9 MEQ/L Blood Urea Nitrogen 30 MG/DL Creatinine 1.21 MG/DL Estimat Glomerular Filtration 61 ML/MIN Rate Random Glucose 246 MG/DL Calcium Level 9.1 MG/DL Date/Time Procedure Status Source Growth 07/19/16 16:45 Urine Culture - Preliminary Resulted Urine Clean Catch Gram Negative [place] Vitals/IOs Vital Signs Date Time Temp Pulse Resp B/P Pulse Ox O2 Delivery O2 Flow Rate FiO2 07/21/16 07:09 95 21 07/21/16 07:00 97.5 94 15 121/68 07/20/16 22:00 Nasal Cannula 2.00 Intake and Output 07/20/16 07/20/16 07/21/16 08:00 16:00 00:00 Intake Total 1140 ml 640 ml 500 ml Output Total 1450 ml Balance -310 ml 640 ml 500 ml Assessment & Plan Problem List: (1) Bipolar disorder Assessment & Plan: Patient apparently had an episode of delirium, agitation, aggressive behavior, early this morning, after Haldol 5 mg IM and Benadryl 25 mg IM, patient calmed down and hours later came back to baseline. ICD Code: F31.9 Assessment & Plan Estimated LOS: days Justification for Cont. Inpt. Patient needs to remains on the psychiatric admission for stabilization. Request HC Surrog/Guard Advoc?: No Problem Qualifiers (1) Bipolar disorder: Marcus Kendrick MD Jul 21, 2016 10:03
[2016-07-21] MEDS: CEFUROXIME AXETIL 500 MG TAB PO SCH (20:26)
[2016-07-21] MEDS: INSULIN DETEMIR 100 UNITS/ML VIAL SQ SCH (20:39)
[2016-07-22 06:30] VITALS: BP 118/73; PULSE 65; RESP 16; TEMP 97.6; O2SAT 97
[2016-07-22] MEDS: INSULIN ASPART SUPPLEMENTAL SCALE SQ SCH ×4 (06:32→20:29)
[2016-07-22] MEDS: INSULIN ASPART 1,000 UNITS/10 ML VIAL SQ SCH ×3 (08:00→16:23)
[2016-07-22 08:32] LABS: BICARBONATE 25.1 MEQ/L (21.0-32.0); POTASSIUM 3.8 MEQ/L (3.5-5.1)
[2016-07-22] MEDS: NICOTINE 21 MG/24 HR PATCH T-DERMAL SCH (09:00)
[2016-07-22] MEDS: DOCUSATE SODIUM 100 MG CAP PO SCH (09:00)
[2016-07-22] MEDS: FENOFIBRATE 145 MG TAB PO SCH (09:00)
[2016-07-22] MEDS: TAMSULOSIN HCL 0.4 MG CAP PO SCH (09:00)
[2016-07-22] MEDS: busPIRone HCL 5 MG TAB PO SCH (09:00)
[2016-07-22] MEDS: FUROSEMIDE 40 MG TAB PO SCH (09:00)
[2016-07-22] MEDS: FLUTICASONE PROPIONATE 50 MCG/ACT 16 GM NASAL SPRAY SCH (09:00)
[2016-07-22] MEDS: TOPIRAMATE 25 MG TAB PO SCH ×2 (09:00→20:30)
[2016-07-22] MEDS: CEFUROXIME AXETIL 500 MG TAB PO SCH ×2 (09:00→20:30)
[2016-07-22] MEDS: POTASSIUM CHLORIDE 20 MEQ PWD PACKET PO SCH (09:00)
[2016-07-22] MEDS: CARVEDILOL 6.25 MG TAB PO SCH ×2 (09:00→20:30)
[2016-07-22] MEDS: DICLOFENAC SODIUM 75 MG DELAYED RELEASE TAB PO SCH ×2 (09:00→20:30)
[2016-07-22] MEDS: DULoxetine HCl DR 60 MG CAP PO SCH ×2 (09:00→20:30)
[2016-07-22] MEDS: PREGABALIN 75 MG CAP PO SCH ×3 (09:00→18:00)
[2016-07-22] MEDS: REMOVE OLD PATCH T-DERMAL SCH (09:00)
[2016-07-22] MEDS: ATORVASTATIN 40 MG TAB PO SCH (09:00)
--- NOTE | 2016-07-22 09:44 | HHI.PYPN ---
Subjective Remarks Patient seen today for reevaluation and MATY Loja and Mr. Therapist Jose J Christian , patient was unable to participate in the interview due to the level of confusion and lethargy. Patient was found sleeping, he was very difficult to arouse, after several attempts patient woke up, they but immediately fell asleep which is in usual of him at this time. As per nurses last night patient was complaining of problems sleeping, very vivid dreams I was kind of agitated. Review of Systems ROS Limitations: Altered Mental Status, Uncooperative Constitutional: COMPLAINS OF: Fatigue Psychiatric: COMPLAINS OF: Confusion Objective Alert: Yes Falls: Person Mood: Other (AMS) Affect: Other (AMS) Memory Intact: Comment (AMS) Hallucinations: Other (AMS) Delusions: No Delusion Type: Other (AMS) Suicidal: Ideation (AMS) Homicidal: Ideation (AMS) Insight/Judgement Poor Labs Test 07/22/16 07:32 Sodium Level 140 MEQ/L Potassium Level 3.8 MEQ/L Chloride Level 105 MEQ/L Carbon Dioxide Level 25.1 MEQ/L Anion Gap 10 MEQ/L Blood Urea Nitrogen 27 MG/DL Creatinine 1.26 MG/DL Estimat Glomerular Filtration 58 ML/MIN Rate Random Glucose 237 MG/DL Calcium Level 9.0 MG/DL Date/Time Procedure Status Source Growth 07/19/16 16:45 Urine Culture - Final Complete Urine Clean Catch Klebsiella Pneumoniae Vitals/IOs Vital Signs Date Time Temp Pulse Resp B/P Pulse Ox O2 Delivery O2 Flow Rate FiO2 07/22/16 06:30 97.6 65 16 118/73 97 07/21/16 21:47 Room Air 07/21/16 07:09 21 07/20/16 22:00 2.00 Intake and Output 07/21/16 07/21/16 07/22/16 08:00 16:00 00:00 Intake Total 360 ml 2440 ml 940 ml Balance 360 ml 2440 ml 940 ml Assessment & Plan Problem List: (1) Bipolar disorder Assessment & Plan: Patient was found to be very sedated, lethargic, difficult to arouse, hypoactive. We discussed with medicine the needs of transferring the patient to the medical floor, with a stop or anticholinergic medications and also the Depakote as potential causes of this picture. Will order ammonia level, and routine labs. ICD Code: F31.9 Assessment & Plan Estimated LOS: days Justification for Cont. Inpt. Patient with AMS, confused very hypoactive. Request HC Surrog/Guard Advoc?: No Problem Qualifiers (1) Bipolar disorder: Marcus Kendrick MD Jul 22, 2016 09:44
--- NOTE | 2016-07-22 12:50 | HHI.PR ---
Subjective Remarks follow-up visit left second toe fracture, DM 2, HTN, fall, vertigo, EPS and AMS. Patient sitting in bed. Resting able to awake to voice but then drifts off to sleep during exam. Does not appear as as yesterday. On room air. Alert and oriented 3. Reports feeling better today. Denies dizziness at this time- reports dizziness usually occurs in the shower. Denies SOB/ dyspnea. Denies chest pain, palpitations, headaches, dizziness. Denies fevers, chills, n/v/d. Objective Vitals Vital Signs Date Time Temp Pulse Resp B/P Pulse Ox O2 Delivery O2 Flow Rate FiO2 07/22/16 12:38 18 07/22/16 06:30 97.6 65 16 118/73 97 07/21/16 21:47 Room Air 07/21/16 20:39 98.0 82 16 124/62 98 07/21/16 19:11 95 07/21/16 18:30 82 17 111/57 94 07/21/16 17:54 Room Air I/O 07/21/16 07/21/16 07/21/16 07/22/16 07/22/16 07/22/16 07:00 15:00 23:00 07:00 15:00 23:00 Intake Total 360 ml 2440 ml 940 ml 240 ml Balance 360 ml 2440 ml 940 ml 240 ml Intake Oral 360 ml 2440 ml 940 ml 240 ml # Voids 2 1 2 # Bowel Movements 0 0 Result Diagram: 07/19/16 0954 07/22/16 0732 Objective Remarks GENERAL: This is a morbidly obese patient SKIN: No rashes, ecchymoses or lesions. Cool and dry. HEAD: Atraumatic. Normocephalic. No temporal or scalp tenderness. EYES: Pupils equal round and reactive. Extraocular motions intact. No scleral icterus. No injection or drainage. ENT: Nose without bleeding. Throat without erythema. Uvula midline. Airway patent. NECK: Trachea midline. No JVD or lymphadenopathy. Supple, nontender, no meningeal signs. CARDIOVASCULAR: Regular rate and rhythm without murmurs, gallops, or rubs. RESPIRATORY: Clear to auscultation. Breath sounds equal bilaterally. No wheezes , rales, or rhonchi. GASTROINTESTINAL: Abdomen soft, non-tender, nondistended. Bowel sounds active 4 MUSCULOSKELETAL: Extremities without clubbing, cyanosis, or edema. No joint tenderness, effusion, or edema noted. No calf tenderness. Negative Homans sign bilaterally. Left second toe edema, no erythema noted, mild tenderness, able to move without difficulty NEUROLOGICAL: Alert and oriented 3, drifts off to sleep during exam motor and sensory grossly within normal limits. No focal deficits appreciated A/P Problem List: (1) Bipolar disorder ICD Code: F31.9 Status: Acute (2) Sleep apnea ICD Code: G47.30 Status: Chronic (3) HTN (hypertension) ICD Code: I10 Status: Chronic (4) Hyperlipidemia ICD Code: E78.5 Status: Chronic (5) DM type 2 (diabetes mellitus, type 2) ICD Code: E11.9 Status: Acute Assessment and Plan Patient is a 65-year-old male with primary medical history of diabetes, high cholesterol, hypertension, neuropathy, sleep apnea who came into the hospital under Vaughan act. Patient allegedly aggressive towards family members. Also reports visual auditory hallucinations. He is now admitted to inpatient medical psych unit for further evaluation. Consulted for medical management. Auditory or visual hallucination - management by psychiatry HTN -improving losartan to 25 mg daily- placed on hold secondary to renal function continue Coreg to 6.25 mg twice a day, Lasix to 40 mg daily - Monitor BP trend DM 2 - remains elevated -metformin restarted renal function improving -Continue Levemir to 30 Units daily at bedtime -continue NovoLog to 7 Units 3 times a day with meals - Monitor Accu-Cheks, insulin sliding scale, Sleep apnea - continue with CPAP use. Neuropathy - continue Lyrica Left Second toe swelling - check x-ray - showed severely comminuted PIP fracture of the second toe. - Orthopedic consulted. Referred to podiatry. Given new orthotic shoe. Vertigo- meclizine 12.5mg 3 times a day PRN Monitor response Continue physical therapy Back pain: S/P Fall imaging reviewed and reveals: Thoracic spine CT 1. No acute bony fracture. 2. Primary bony degenerative changes are noted throughout the thoracic spine. 3. Broad-based bulging at T10- 11 4. Broad-based and right lateral bulging T11-T12 Lumbar spine CT 1. No acute bony fracture. 2. Diffuse primary bony degenerative changes, disc degeneration and disc space narrowing at L3-4, L4-5 and L5-S1. 3. Moderate spinal canal stenosis at L3-4. 4. Mild spinal canal stenosis at L4-5 5. Bilateral facet arthritis at multiple levels. Cervical spine CT 1. No acute bony fracture. 2. Diffuse primary bony degenerative changes, disc degeneration are noted throughout the cervical spine. 3. Broad-based bulging with disc osteophyte complex at C6-7 4. Focal central bulging disc osteophyte complex at C5-6. Discussed with neurology Dr. Snell recommended MRI, MRA [place] and US carotids Head MRA report: No intracranial vascular abnormality is identified MRI of brain report: 1. No acute intracranial abnormality is identified to explain the clinical symptoms. 2. Chronic changes include mild cerebral atrophy and mild periventricular white matter change most likely representing chronic microvascular ischemia. Ultrasound bilateral carotid artery reveals: Mild plaquing with no evidence of stenosis. EPS- per psych Tremors: Per Dr. Snell recommendations Topamax 50 mg twice a day started Patient to follow-up with outpatient neurologist for titration and management after discharge UTI- continue Ceftin Urine culture reveals Klebsiella pneumonia Acute kidney injury post one bag of IV fluids BMP reviewed Lasix decreased to 40 mg daily May need to DC if creatinine remains elevated consider dc NSAID Encephalopathy/Lethargy/altered mental status Ammonia level LI from depakote we'll start lactulose 3 times a day and recheck ammonia level in a.m. CBC in CMP ordered. Consider GI/liver w/u. Could be related to meds depakote and cogentin dc, consider dc Topamax if no improvement Discuss with patient, RN and Dr. Kendrick Written by Jessika Marquez, acting as scribe for Dr. Espinal on 07/22/16 at 12:49. The documentation accurately reflects the work performed [id number] by me on at 1249 Problem Qualifiers (1) Bipolar disorder: Jessika Marquez Jul 22, 2016 12:50 Srinivas Espinal MD Jul 22, 2016 14:45
[2016-07-22] MEDS: LACTULOSE SYRUP 20 GM/30 ML CUP PO SCH ×2 (13:00→18:00)
[2016-07-22 15:45] LABS: AUTOMATED NEUTROPHIL # 2.9 TH/MM3 (1.8-7.7); BASOPHIL % 0.5 % (0.0-2.0); EOSINOPHIL # 0.1 TH/MM3 (0-0.4); EOSINOPHIL % 1.4 % (0.0-4.0); HEMATOCRIT 35.9 % (39.0-51.0); HEMO FLAGS DIFF FINAL; LYMPH % 26.8 % (9.0-44.0); LYMPHOCYTE # 1.3 TH/MM3 (1.0-4.8); MEAN CELL VOLUME 82.2 FL (80.0-100.0); MEAN CORPUSCULAR HEMOGLOBIN 28.3 PG (27.0-34.0); MEAN CORPUSCULAR HGB CONC 34.4 % (32.0-36.0); MONO % 10.7 % (0.0-8.0); NEUT % 60.6 % (16.0-70.0); PLATELET COUNT 242 TH/MM3 (150-450); RED BLOOD COUNT 4.37 MIL/MM3 (4.50-5.90); RED CELL DISTRIBUTION WIDTH 14.6 % (11.6-17.2); WHITE BLOOD COUNT 4.8 TH/MM3 (4.0-11.0)
[2016-07-22 16:08] LABS: ALKALINE PHOSPHATASE 51 U/L (45-117); ALT (GPT) 23 U/L (12-78); ANION GAP 5 MEQ/L (5-15); AST (GOT) 21 U/L (15-37); BICARBONATE 30.9 MEQ/L (21.0-32.0); BLOOD UREA NITROGEN 24 MG/DL (7-18); CHLORIDE 102 MEQ/L (98-107); GLOMERULAR FILTRATION RATE 57 ML/MIN (>89); POTASSIUM 4.1 MEQ/L (3.5-5.1); SODIUM (NA) 138 MEQ/L (136-145); TOTAL BILIRUBIN ADULT 0.4 MG/DL (0.2-1.0)
[2016-07-22 16:53] VITALS: BP 145/60; PULSE 78; RESP 24; TEMP 98
[2016-07-22 19:14] VITALS: BP 138/68; PULSE 75; RESP 18; TEMP 98.4; O2SAT 97
[2016-07-22] MEDS: INSULIN DETEMIR 100 UNITS/ML VIAL SQ SCH (20:29)
[2016-07-22] MEDS: metFORMIN HCL 500 MG TAB PO SCH (20:30)
[2016-07-22 21:43] VITALS: O2SAT 98
[2016-07-23 05:42] VITALS: BP 135/71; PULSE 63; RESP 18; TEMP 97.7; O2SAT 95
[2016-07-23] MEDS: INSULIN ASPART SUPPLEMENTAL SCALE SQ SCH ×4 (06:21→21:03)
[2016-07-23] MEDS: INSULIN ASPART 1,000 UNITS/10 ML VIAL SQ SCH ×4 (08:00→17:08)
[2016-07-23] MEDS ORDERED: INSULIN DETEMIR 100 UNITS/ML VIAL SQ SCH (08:15)
[2016-07-23 08:19] VITALS: O2SAT 95
[2016-07-23] MEDS: FENOFIBRATE 145 MG TAB PO SCH (08:45)
[2016-07-23] MEDS: FUROSEMIDE 40 MG TAB PO SCH (08:45)
[2016-07-23] MEDS: CEFUROXIME AXETIL 500 MG TAB PO SCH ×2 (08:45→21:02)
[2016-07-23] MEDS: ATORVASTATIN 40 MG TAB PO SCH (08:45)
[2016-07-23] MEDS: busPIRone HCL 5 MG TAB PO SCH (08:45)
[2016-07-23] MEDS: CARVEDILOL 6.25 MG TAB PO SCH ×2 (08:45→21:02)
[2016-07-23] MEDS: DULoxetine HCl DR 60 MG CAP PO SCH ×2 (08:46→21:01)
[2016-07-23] MEDS: LACTULOSE SYRUP 20 GM/30 ML CUP PO SCH ×2 (08:46→11:00)
[2016-07-23] MEDS: metFORMIN HCL 500 MG TAB PO SCH ×2 (08:46→21:01)
[2016-07-23] MEDS: PREGABALIN 75 MG CAP PO SCH ×4 (08:46→17:09)
[2016-07-23] MEDS: TOPIRAMATE 25 MG TAB PO SCH ×2 (08:46→21:01)
[2016-07-23] MEDS: DICLOFENAC SODIUM 75 MG DELAYED RELEASE TAB PO SCH ×2 (08:46→21:01)
[2016-07-23] MEDS: FLUTICASONE PROPIONATE 50 MCG/ACT 16 GM NASAL SPRAY SCH (08:47)
[2016-07-23] MEDS: DOCUSATE SODIUM 100 MG CAP PO SCH (08:52)
[2016-07-23] MEDS: POTASSIUM CHLORIDE 20 MEQ PWD PACKET PO SCH (08:53)
[2016-07-23] MEDS: HEPARIN SODIUM - SQ 10,000 UNITS/ML VIAL SQ SCH ×3 (09:00→21:01)
[2016-07-23] MEDS: NICOTINE 21 MG/24 HR PATCH T-DERMAL SCH (09:00)
[2016-07-23] MEDS: REMOVE OLD PATCH T-DERMAL SCH (09:00)
[2016-07-23] MEDS: TAMSULOSIN HCL 0.4 MG CAP PO SCH (09:00)
--- NOTE | 2016-07-23 09:36 | HHI.PYPN ---
Subjective Remarks Patient seen for evaluation today, he was so alert, communicative, talkative, but mostly calm and cooperative, oriented 3, no signs of delirium, confusion, gross cognitive impairment observed. He reports good mood, he is motivated to be discharged to [facility] and continue his medical/psychiatric care as an outpatient. He denies suicidal or homicidal ideation. He denies visual and auditory hallucinations. Review of Systems Other No somatic complaints reported Objective Alert: Yes [place]: Person, Place, Date, Situation Mood: Calm, Other (AMS) Affect: Euthymic, Other (AMS) Memory Intact: Immediate, Recent, Remote, Comment Hallucinations: Other (he denies) Delusions: No Delusion Type: Other (none) Suicidal: Ideation (he denies) Homicidal: Ideation (he denies) Insight/Judgement Good Labs Test 07/22/16 07/22/16 07/23/16 11:04 15:15 08:26 Ammonia 51 MCMOL/L 45 MCMOL/L White Blood Count 4.8 TH/MM3 Red Blood Count 4.37 MIL/MM3 Hemoglobin 12.3 GM/DL Hematocrit 35.9 % Mean Corpuscular Volume 82.2 FL Mean Corpuscular Hemoglobin 28.3 PG Mean Corpuscular Hemoglobin 34.4 % Concent Red Cell Distribution Width 14.6 % Platelet Count 242 TH/MM3 Mean Platelet Volume 7.9 FL Neutrophils (%) (Auto) 60.6 % Lymphocytes (%) (Auto) 26.8 % Monocytes (%) (Auto) 10.7 % Eosinophils (%) (Auto) 1.4 % Basophils (%) (Auto) 0.5 % Neutrophils # (Auto) 2.9 TH/MM3 Lymphocytes # (Auto) 1.3 TH/MM3 Monocytes # (Auto) 0.5 TH/MM3 Eosinophils # (Auto) 0.1 TH/MM3 Basophils # (Auto) 0.0 TH/MM3 CBC Comment DIFF FINAL Differential Comment Sodium Level 138 MEQ/L Potassium Level 4.1 MEQ/L Chloride Level 102 MEQ/L Carbon Dioxide Level 30.9 MEQ/L Anion Gap 5 MEQ/L Blood Urea Nitrogen 24 MG/DL Creatinine 1.28 MG/DL Estimat Glomerular Filtration 57 ML/MIN Rate Random Glucose 362 MG/DL Calcium Level 9.0 MG/DL Total Bilirubin 0.4 MG/DL Aspartate Amino Transf 21 U/L (AST/SGOT) Alanine Aminotransferase 23 U/L (ALT/SGPT) Alkaline Phosphatase 51 U/L Total Protein 7.2 GM/DL Albumin 3.2 GM/DL Valproic Acid (Depakene) Level 26 MCG/ML Date/Time Procedure Status Source Growth 07/19/16 16:45 Urine Culture - Final Complete Urine Clean Catch Klebsiella Pneumoniae Vitals/IOs Vital Signs Date Time Temp Pulse Resp B/P Pulse Ox O2 Delivery O2 Flow Rate FiO2 07/23/16 08:19 95 21 07/23/16 07:00 Room Air 07/23/16 05:42 97.7 63 18 135/71 07/22/16 21:43 2.00 Intake and Output 07/22/16 07/22/16 07/23/16 08:00 16:00 00:00 Intake Total 240 ml 1080 ml Balance 240 ml 1080 ml Assessment & Plan Problem List: (1) Bipolar disorder Assessment & Plan: No confusion, delirium, lethargy present today. Patient is fully awake and alert, oriented 3, denies depression, denies anxiety, denies perceptual disturbances, denies suicidal or homicidal ideation. Will restart Depakote 500 mg twice a day. We discussed with medicine the possibility to discharge to [facility] today or tomorrow. ICD Code: F31.9 Assessment & Plan Estimated LOS: days Justification for Cont. Inpt. Now just awaiting the coordination of discharge. Request HC Surrog/Guard Advoc?: No Problem Qualifiers (1) Bipolar disorder: Marcus Kendrick MD Jul 23, 2016 09:36
--- NOTE | 2016-07-23 10:25 | HHI.PR ---
Subjective Remarks Follow-up visit left second toe fracture, DM 2, HTN, vertigo, altered mental status. Patient seen today. Reports is doing well. Alert, oriented, responsive to questions and commands. Denies pain and discomfort. Denies SOB/ dyspnea. Denies chest pain, palpitations, headaches, dizziness. Denies fevers, chills, n/v/d. Objective Vitals Vital Signs Date Time Temp Pulse Resp B/P Pulse Ox O2 Delivery O2 Flow Rate FiO2 07/23/16 08:19 95 21 07/23/16 07:00 95 Room Air 07/23/16 05:42 97.7 63 18 135/71 95 07/22/16 21:43 98 Nasal Cannula 2.00 07/22/16 21:43 98 Nasal Cannula 2.00 07/22/16 19:14 98.4 75 18 138/68 97 07/22/16 16:53 98.0 78 24 145/60 07/22/16 12:38 18 I/O 07/22/16 07/22/16 07/22/16 07/23/16 07/23/16 07/23/16 07:00 15:00 23:00 07:00 15:00 23:00 Intake Total 240 ml 1080 ml Balance 240 ml 1080 ml Intake Oral 240 ml 1080 ml # Voids 2 2 2 # Bowel Movements 0 Result Diagram: 07/22/16 1515 07/22/16 1515 Imaging Last Impressions Chest X-Ray 07/19/16 0000 Signed Impressions: Service Date/Time: Tuesday, July 19, 2016 09:15 - CONCLUSION: No acute disease. Reinier Andres MD Head Magnetic Resonance Angiography 07/18/16 0000 Signed Impressions: Service Date/Time: June 08:40 - CONCLUSION: No intracranial vascular abnormality is identified. Bill Mccann MD Brain MRI 07/18/16 0000 Signed Impressions: Service Date/Time: June 08:40 - CONCLUSION: 1. No acute intracranial abnormality is identified to explain the clinical symptoms. 2. Chronic changes include mild cerebral atrophy and mild periventricular white matter change most likely representing chronic microvascular ischemia. Bill Mccann MD Carotid Artery Ultrasound 07/17/16 0000 Signed Impressions: Service Date/Time: Sunday, July 17, 2016 21:10 - CONCLUSION: Mild plaquing with no evidence of stenosis. Acosta Cruz MD Thoracic Spine CT [id number] Signed Impressions: Service Date/Time: Saturday, July 16, 2016 00:18 - CONCLUSION: 1. No acute bony fracture. 2. Primary bony degenerative changes are noted throughout the thoracic spine. 3. Broad-based bulging at T10-11 4. Broad-based and right lateral bulging T11-T12 Ochoa Mehta MD Lumbar Spine CT [id number] Signed Impressions: Service Date/Time: Saturday, July 16, 2016 00:18 - CONCLUSION: 1. No acute bony fracture. 2. Diffuse primary bony degenerative changes, disc degeneration and disc space narrowing at L3-4, L4-5 and L5-S1. 3. Moderate spinal canal stenosis at L3-4. 4. Mild spinal canal stenosis at L4-5 5. Bilateral facet arthritis at multiple levels. Ochoa Mehta MD Cervical Spine CT [id number] Signed Impressions: Service Date/Time: Saturday, July 16, 2016 00:16 - CONCLUSION: 1. No acute bony fracture. 2. Diffuse primary bony degenerative changes, disc degeneration are noted throughout the cervical spine. 3. Broad-based bulging with disc osteophyte complex at C6-7 4. Focal central bulging disc osteophyte complex at C5-6. Ochoa Mehta MD Toe X-Ray 07/11/16 0000 Signed Impressions: Service Date/Time: June 19:33 - CONCLUSION: Severely comminuted PIP fracture of the second toe as above. Bill Morelos MD Objective Remarks GENERAL: This is a morbidly obese patient, in no apparent distress. SKIN: No rashes, ecchymoses or lesions. Cool and dry. HEAD: Atraumatic. Normocephalic. No temporal or scalp tenderness. EYES: Pupils equal round and reactive. Extraocular motions intact. No scleral icterus. No injection or drainage. ENT: Nose without bleeding. Throat without erythema. Uvula midline. Airway patent. NECK: Trachea midline. No JVD or lymphadenopathy. Supple, nontender, no meningeal signs. CARDIOVASCULAR: Regular rate and rhythm without murmurs, gallops, or rubs. RESPIRATORY: Clear to auscultation. Breath sounds equal bilaterally. No wheezes , rales, or rhonchi. GASTROINTESTINAL: Abdomen soft, non-tender, nondistended. Bowel sounds active 4. MUSCULOSKELETAL: Extremities without clubbing, cyanosis, or edema. Left second toe edema, no erythema noted, mild tenderness, able to move without difficulty. NEUROLOGICAL: Awake and alert. Oriented 3. Motor and sensory grossly within normal limits. No focal neuro deficit. Normal speech. A/P Problem List: (1) Bipolar disorder ICD Code: F31.9 Status: Acute (2) Sleep apnea ICD Code: G47.30 Status: Chronic (3) HTN (hypertension) ICD Code: I10 Status: Chronic (4) Hyperlipidemia ICD Code: E78.5 Status: Chronic (5) DM type 2 (diabetes mellitus, type 2) ICD Code: E11.9 Status: Acute Assessment and Plan Patient is a 65-year-old male with primary medical history of diabetes, high cholesterol, hypertension, neuropathy, sleep apnea who came into the hospital under Vaugh[place] act. Patient allegedly aggressive towards family members. Also reports visual auditory hallucinations. He is now admitted to inpatient medical psych unit for further evaluation. Consulted for medical management. Auditory or visual hallucination - management by psychiatry HTN - losartan 25 mg daily hold secondary to renal function, continue Coreg 6.25 mg twice a day, Lasix 40mg daily - Monitor BP trend - Controlled DM 2 - uncontrolled add levemir [address] Levemir 30 units daily at bedtime, prandial insulin 7 units TID - Monitor Accu-Cheks, insulin sliding scale, - Continue metformin 1000 mg twice a day Sleep apnea - continue with CPAP use. Please arrangement respiratory therapist Neuropathy - continue Lyrica Left Second toe swelling - x-ray - showed severely comminuted PIP fracture of the second toe. - Orthopedic consulted. Referred to podiatry. Given new orthotic shoe. Back pain: S/P Fall imaging reviewed and reveals: - Thoracic spine CT 1. No acute bony fracture. 2. Primary bony degenerative changes are noted throughout the thoracic spine. 3. Broad-based bulging at T10- 11 4. Broad-based and right lateral bulging T11-T12 - Lumbar spine CT 1. No acute bony fracture. 2. Diffuse primary bony degenerative changes, disc degeneration and disc space narrowing at L3-4, L4-5 and L5-S1. 3. Moderate spinal canal stenosis at L3-4. 4. Mild spinal canal stenosis at L4-5 5. Bilateral facet arthritis at multiple levels. - Cervical spine CT 1. No acute bony fracture. 2. Diffuse primary bony degenerative changes, disc degeneration are noted throughout the cervical spine. 3. Broad-based bulging with disc osteophyte complex at C6-7 4. Focal central bulging disc osteophyte complex at C5-6. Vertigo - started on meclizine when necessary Discussed with neurology Dr. Snell recommended MRI, MRA [place] and US carotids Head MRA report: No intracranial vascular abnormality is identified MRI of brain report: 1. No acute intracranial abnormality is identified to explain the clinical symptoms. 2. Chronic changes include mild cerebral atrophy and mild periventricular white matter change most likely representing chronic microvascular ischemia. Ultrasound bilateral carotid artery reveals: Mild plaquing with no evidence of stenosis. EPS- per psych Tremors: Per Dr. Snell recommendations Topamax 50 mg twice a day started Patient to follow-up with outpatient neurologist for titration and management after discharge UTI- continue Ceftin until 07/29/16 Urine culture reveals Klebsiella pneumonia Acute kidney injury post one bag of IV fluids BMP reviewed improved. Lasix decreased to 40 mg daily Lethargy - possibly related to Depakote and Cogentin use. Levels checked, 108 - -> 26 today - Ammonia level trending down 45 ct lactulose and check liver sono - Patient awake oriented today. DVT prop early ambulation Discuss with patient, RN Stable from Hospitalist standpoint. May be discharged [facility]. Written by Chavo White, acting as scribe for Dr. Espinal on 07/23/16 at 10: 22. The documentation accurately reflects the work performed [id number] by me on at 21:31. Discharge Planning May DC the [facility]/ SNF Problem Qualifiers (1) Bipolar disorder: Chavo Reed Jul 23, 2016 10:24 Srinivas Espinal MD Jul 23, 2016 21:32
[2016-07-23] MEDS: DIVALPROEX SODIUM E.R. 500 MG TAB PO SCH ×2 (11:54→21:01)
--- NOTE | 2016-07-23 19:07 | RADRPT ---
EXAM DATE/TIME: 07/23/2016 18:30 [place] COMPARISON: No previous studies available for comparison. INDICATIONS : Elevated labs. MEDICAL HISTORY : Hypercholesterolemia. Hypertension. Congestive heart failure. Hyperlipidemia. Sleep apnea. Herniated disks. Diabetes. Schizophrenia. Peripheral neuropathy. SURGICAL HISTORY : Tonsillectomy. ENCOUNTER: Initial ACUITY: 1 day PAIN SCORE: 0/10 LOCATION: Right upper quadrant MEASUREMENTS: LIVER: 19.8 cm length COMMON DUCT: 7 mm RIGHT KIDNEY: 13.8 x 6.0 x 4.7 cm SPLEEN: 11.7 cm length FINDINGS: LIVER: Liver is enlarged and echogenic. COMMON DUCT: No intraluminal mass or stone visualized. GALLBLADDER: The gallbladder was not visualized. PANCREAS: The visualized portions are within normal limits. RIGHT KIDNEY: No hydronephrosis, stone or mass. SPLEEN: No focal lesion. CONCLUSION: 1. Hepatomegaly with suspected fatty infiltration. 2. The gallbladder is not seen. The patient reports being status post cholecystectomy. Bill Canela MD on July 23, 2016 at 19:04 Board Certified Radiologist. This report was verified electronically.
[2016-07-23] MEDS: ACETAMINOPHEN/HYDROcodone 325 MG/10 MG TAB PO PRN (21:02)
[2016-07-23] MEDS: diphenhydrAMINE HCL 50 MG CAP PO PRN (21:02)
[2016-07-23] MEDS: INSULIN DETEMIR 100 UNITS/ML VIAL SQ SCH (21:03)
[2016-07-23 22:00] VITALS: BP 140/69; PULSE 73; RESP 18; TEMP 97.3; O2SAT 96
[2016-07-23 22:31] VITALS: O2SAT 95
[2016-07-24 05:50] VITALS: BP 142/70; PULSE 66; RESP 18; TEMP 97.9; O2SAT 98
[2016-07-24] MEDS: ACETAMINOPHEN/HYDROcodone 325 MG/10 MG TAB PO PRN (06:05)
[2016-07-24] MEDS: INSULIN ASPART SUPPLEMENTAL SCALE SQ SCH (06:23)
[2016-07-24] MEDS ORDERED: INSULIN ASPART 1,000 UNITS/10 ML VIAL SQ SCH (08:00)
[2016-07-24] MEDS ORDERED: INSULIN DETEMIR 100 UNITS/ML VIAL SQ SCH (08:00)
[2016-07-24] MEDS: HEPARIN SODIUM - SQ 10,000 UNITS/ML VIAL SQ SCH (08:12)
[2016-07-24] MEDS: LACTULOSE SYRUP 20 GM/30 ML CUP PO SCH (08:12)
[2016-07-24] MEDS: FLUTICASONE PROPIONATE 50 MCG/ACT 16 GM NASAL SPRAY SCH (08:12)
[2016-07-24] MEDS: DIVALPROEX SODIUM E.R. 500 MG TAB PO SCH (08:13)
[2016-07-24] MEDS: PREGABALIN 75 MG CAP PO SCH (08:13)
[2016-07-24] MEDS: CEFUROXIME AXETIL 500 MG TAB PO SCH (08:13)
[2016-07-24] MEDS: ATORVASTATIN 40 MG TAB PO SCH (08:13)
[2016-07-24] MEDS: busPIRone HCL 5 MG TAB PO SCH (08:13)
[2016-07-24] MEDS: CARVEDILOL 6.25 MG TAB PO SCH (08:13)
[2016-07-24] MEDS: DICLOFENAC SODIUM 75 MG DELAYED RELEASE TAB PO SCH (08:13)
[2016-07-24] MEDS: metFORMIN HCL 500 MG TAB PO SCH (08:13)
[2016-07-24] MEDS: DULoxetine HCl DR 60 MG CAP PO SCH (08:13)
[2016-07-24] MEDS: TOPIRAMATE 25 MG TAB PO SCH (08:14)
[2016-07-24] MEDS: FENOFIBRATE 145 MG TAB PO SCH (08:14)
[2016-07-24] MEDS: FUROSEMIDE 40 MG TAB PO SCH (08:14)
[2016-07-24] MEDS: DOCUSATE SODIUM 100 MG CAP PO SCH (08:14)
[2016-07-24] MEDS: TAMSULOSIN HCL 0.4 MG CAP PO SCH (08:37)
[2016-07-24] MEDS: POTASSIUM CHLORIDE 20 MEQ PWD PACKET PO SCH (08:39)
[2016-07-24] MEDS: REMOVE OLD PATCH T-DERMAL SCH (08:39)
[2016-07-24] MEDS: NICOTINE 21 MG/24 HR PATCH T-DERMAL SCH (08:40)
--- NOTE | 2016-07-24 09:39 | HHI.PYPN ---
Subjective Remarks Late entry for 07/20/2016. On psychiatric evaluation today patient was found calm, cooperative and pleasant, he reports good mood, good appetite, good level of energy, he has been sleeping well, he denies suicidal or homicidal ideation, he denies visual hallucinations, patient is fully oriented 3, no gross cognitive impairment observed. Review of Systems Other No somatic complaints Objective Alert: Yes [place]: Person, Place, Date, Situation Mood: Calm, Other (AMS) Affect: Euthymic, Other (AMS) Memory Intact: Immediate, Recent, Remote, Comment Hallucinations: Other (he denies) Delusions: No Delusion Type: Other (none) Suicidal: Ideation (he denies) Homicidal: Ideation (he denies) Insight/Judgement Good Labs Date/Time Procedure Status Source Growth 07/19/16 16:45 Urine Culture - Final Complete Urine Clean Catch Klebsiella Pneumoniae Vitals/IOs Vital Signs Date Time Temp Pulse Resp B/P Pulse Ox O2 Delivery O2 Flow Rate FiO2 07/24/16 07:00 98 Room Air 07/24/16 05:50 97.9 66 18 142/70 07/23/16 22:31 21 07/22/16 21:43 2.00 Intake and Output 07/23/16 07/23/16 07/24/16 08:00 16:00 00:00 Intake Total 360 ml Balance 360 ml Assessment & Plan Problem List: (1) Bipolar disorder Assessment & Plan: Patient is to continue his psychiatric hospitalization for stabilization, no changes in medications today. ICD Code: F31.9 Assessment & Plan Estimated LOS: days Justification for Cont. Inpt. Patient is to continue psychiatric hospitalization for stabilization. Request HC Surrog/Guard Advoc?: No Problem Qualifiers (1) Bipolar disorder: Marcus Kendrick MD Jul 24, 2016 09:39
[2016-07-24] MEDS ORDERED: LEVEMIR SQ ×2 (09:46)
[2016-07-24] MEDS ORDERED: POTA10PO PO (09:46)
[2016-07-24] MEDS ORDERED: FLUT50SP EACH NARE (09:46)
[2016-07-24] MEDS ORDERED: FURO1TAB60 PO (09:46)
[2016-07-24] MEDS ORDERED: NOVOLOGP2 SQ (09:46)
[2016-07-24] MEDS ORDERED: DOCU100C PO (09:46)
[2016-07-24] MEDS ORDERED: CARV6.25 PO (09:46)
[2016-07-24] MEDS ORDERED: CEFT500T3 PO (09:46)
[2016-07-24] MEDS ORDERED: FENO145T2 PO (09:46)
[2016-07-24] MEDS ORDERED: NICO21DI2 T-DERMAL (09:46)
[2016-07-24] MEDS ORDERED: METF500 PO (09:46)
[2016-07-24] MEDS ORDERED: LACT10SO PO (09:46)
[2016-07-24] MEDS ORDERED: TAMS5CAP PO (09:46)
[2016-07-24] MEDS ORDERED: LIPI40TA PO (09:46)
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
[2016-07-24 10:00] VITALS: O2SAT 98
[2016-07-24] MEDS ORDERED: HYDR-3583 PO (10:05)
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
== END 2016-07-24 10:12 | disposition home health service (06) | DRG 885 ==
LOC: NEDAMB 12:15 → NEDA 21:53 → H4EA 23:20
PROVIDERS: ADMIT Psychiatry & Neurology Psychiatry; ATTEND Psychiatry & Neurology Psychiatry
DX: F31.9 Bipolar disorder, unspecified (principal); N17.9 Acute kidney failure, unspecified; E11.40 Type 2 diabetes mellitus with diabetic neuropathy, unspecified; E11.65 Type 2 diabetes mellitus with hyperglycemia; N39.0 Urinary tract infection, site not specified; Z99.81 Dependence on supplemental oxygen; I10 Essential (primary) hypertension; Z63.9 Problem related to primary support group, unspecified; E78.00 Pure hypercholesterolemia, unspecified; G47.30 Sleep apnea, unspecified; F41.9 Anxiety disorder, unspecified; M54.9 Dorsalgia, unspecified; G89.29 Other chronic pain; Z79.4 Long term (current) use of insulin; E78.5 Hyperlipidemia, unspecified; M79.89 Other specified soft tissue disorders; S92.912A Unspecified fracture of left toe(s), initial encounter for closed fracture; X58.XXXA Exposure to other specified factors, initial encounter; Y93.9 Activity, unspecified; Y92.9 Unspecified place or not applicable; R42 Dizziness and giddiness; G25.0 Essential tremor; E66.01 Morbid (severe) obesity due to excess calories; M51.36 Other intervertebral disc degeneration, lumbar region; M25.78 Osteophyte, vertebrae; M48.06 Spinal stenosis, lumbar region; M50.30 Other cervical disc degeneration, unspecified cervical region; B96.1 Klebsiella pneumoniae [K. pneumoniae] as the cause of diseases classified elsewhere; W19.XXXA Unspecified fall, initial encounter; Y93.01 Activity, walking, marching and hiking; Y92.230 Patient room in hospital as the place of occurrence of the external cause
CPT/HCPCS: 36600; 70544; 70551; 71010; 71020; 72125; 72128; 72131; 73660; 76705; 76937; 80048; 80053; 80061; 80164; 80307; 80320; 81001; 82140; 82805; 82948; 83036; 85025; 87077; 87086; 87186; 93880; 96372; J1200; J1630; J1644; J1815; J2060; J7030; L3260; Q0163